=== PATIENT | female | born 1955 | race Caucasian/White ===

== ENCOUNTER 2021-09-05 08:58 | Outpatient (CLI) | payer OTHER, SELFPAY ==
--- NOTE | ~2021-09-05 | MM_ITS ---
EXAMINATION: MM screening pelon BI w lizet HISTORY: Screening TECHNIQUE: Craniocaudal and mediolateral oblique 3-D tomosynthesis images were obtained and synthetic 2-D images were generated. CAD analysis was submitted and interpreted. COMPARISON: 10/04/2007 BREAST PARENCHYMAL COMPOSITION: There are scattered areas of fibroglandular density. FINDINGS: There is no evidence of suspicious mass, calcification, or architectural distortion to sugg est malignancy in either breast. There has been no suspicious interval change. IMPRESSION: 1. No mammographic evidence of malignancy. 2. Recommend routine screening mammography in one year. BI-RADS Category 1: Negative Reviewed, dictated and finalized at location A.
== END 2021-09-05 08:59 | disposition home or self-care (01) ==
PROVIDERS: PCP Internal Medicine; Visit Provider Internal Medicine
DX: Z12.31 Encounter for screening mammogram for malignant neoplasm of breast (principal)
CPT/HCPCS: 77063; 77067

== ENCOUNTER 2022-05-23 12:35 | Outpatient (CLI) | payer MEDICARE, SELFPAY ==
--- NOTE | 2022-05-23 | ECHO_ITS ---
Patient Info Name: Lena Hood Age: 66 years : 1955 Gender: Female Ht: 61 in Wt: 185 lbs BSA: 1.94 m2 HR: 89 bpm BP: 138 / 78 mmHg Heart Rhythm: Sinus Rhythm Technical Quality: Fair Exam Date: 05/23/2022 1:03 PM Exam Location: [facility] Pulmonary Patient Status: Outpatient Admit Date: 05/23/2022 Staff Ordering Physician: SairaKalia MD Audiovisual Equipment Operator: Loyda Schwartz RDCS Attending Provider: Saria, Kalia Sanchez MD Referring Physician: Saira RIVAS; Exam Type: CA echo doppler color flow Study Info Indications R01.1 - Cardiac murmur, unspecified Complete two-dimensional, color flow and Doppler transthoracic echocardiogram is performed. Summary 1. Complete two-dimensional, color flow and Doppler transthoracic echocardiogram is performed. 2. Dynamic left ventricular systolic function, EF greater than 70%. Normal size and thickness. Grade 1 diastolic dysfunction is present. 3. Mildly elevated left ventricular outflow tract velocity of 1.7 m/sec, slightly late peaking, but there is no significant outflow tract gradient or septal thickening to suggest hypertrophic obstructive cardiomyopathy. 4. Trace mitral and tricuspid regurgitation. 5. Normal estimated pulmonary pressure. 6. Normal sinus rhythm. Left Ventricle Left ventricular chamber dimension is normal. Left ventricular systolic function is hyperdynamic, estimated at >70%. There is no increased left ventricular wall thickness. Left ventricular septal wall motion is normal. The left ventricular diastolic function is grade I diastolic dysfunction. Right Ventricle Right ventricular chamber dimension is normal. Right ventricular systolic function is normal. Left Atria Left atrial chamber dimension is normal. Right Atria Right atrial chamber dimension is normal. Aortic Valve The aortic valve is trileaflet. There is no aortic valve sclerosis. There is no aortic valve stenosis. There is no aortic valve regurgitation. Pulmonic Valve The pulmonic valve is normal. There is no pulmonic valve stenosis. There is no pulmonic regurgitation. Mitral Valve The mitral valve has normal leaflets. There is no mitral valve stenosis. There is trace mitral valve regurgitation. Tricuspid Valve The tricuspid valve leaflets are normal. There is no significant tricuspid valve stenosis. There is trace tricuspid valve regurgitation. No pulmonary hypertension, estimated pulmonary arterial systolic pressure is 28 mmHg. Pericardium/Pleural The pericardium appears normal. There is no pericardial effusion. Inferior Vena Cava Normal inferior vena cava with >50% collapse upon inspiration consistent with Empty right atrial pressure, 10 mmHg. Aorta The aortic root size at the sinus of Valsalva is normal. The prox ascending aorta size is normal. Left Ventricular Outflow Tract Name Value Normal LVOT 2D LVOT Diameter 1.9 cm LVOT Doppler LVOT Peak Gradient 10 mmHg LVOT Mean Gradient 7 mmHg LVOT VTI 27 cm LVOT VTI/AV VTI Ratio
== END 2022-05-23 12:36 | disposition home or self-care (01) ==
LOC: ANHCARD 12:36
PROVIDERS: PCP Internal Medicine; Visit Provider Internal Medicine
DX: R01.1 Cardiac murmur, unspecified (principal)
CPT/HCPCS: 93306

== ENCOUNTER 2022-10-31 10:00 | Outpatient (CLI) | payer MEDICARE, SELFPAY ==
--- NOTE | ~2022-10-31 | MM_ITS ---
EXAMINATION: MM screening pelon BI w lizet HISTORY: Screening mammogram TECHNIQUE: Craniocaudal and mediolateral oblique 3-D tomosynthesis images were obtained and synthetic 2-D images were generated. CAD analysis was submitted and interpreted. COMPARISON: 09/05/2021, 10/04/2007 bilateral screening mammogram examinations BREAST PARENCHYMAL COMPOSITION: There are scattered areas of fibroglandular density. FINDINGS: Stable mild fibroglandular asymmetry since 09/05/2021 and 10/04/2007. There is no evidence o f suspicious mass, calcification, or architectural distortion to suggest malignancy in either breast. There has been no suspicious interval change. IMPRESSION: 1. No mammographic evidence of malignancy. 2. Recommend routine screening mammography in one year. BI-RADS Category 1: Negative Reviewed, dictated and finalized at location A. [employer]
== END 2022-10-31 10:01 | disposition home or self-care (01) ==
PROVIDERS: PCP Internal Medicine; Visit Provider Internal Medicine
DX: Z12.31 Encounter for screening mammogram for malignant neoplasm of breast (principal)
CPT/HCPCS: 77063; 77067

== ENCOUNTER 2022-12-16 11:30 | Emergency (ER) | payer MEDICARE, SELFPAY ==
--- NOTE | ~2022-12-16 | XR_ITS ---
XR ankle LT min 3V DATE: 12/16/2022 12:03 INDICATION: Fall. Swelling, bruising TECHNIQUE: 4 views COMPARISON: None FINDINGS: There is a transverse mildly medially displaced fracture of the medial malleolus. There is a linear oblique mildly comminuted fracture of the distal fibular diametaphysis. There is moderate lateral subluxation of the tibiotalar joint. Nonspecific soft tissue projection along the medial aspect of the ankle. There is generalized soft ti ssue swelling of the ankle. IMPRESSION: Bimalleolar fracture and lateral tibiotalar subluxation Reviewed, dictated and finalized at location A. M INSTALLATION TECHNICIAN
--- NOTE | ~2022-12-16 | XR_ITS ---
XR foot LT min 3V DATE: 12/16/2022 12:34 INDICATION: Fall. Left ankle and foot injury TECHNIQUE: 4 views COMPARISON: December 16, 2022 left ankle FINDINGS: Distal fibular diametaphyseal and medial malleolar fractures. Soft tissue swelling of ankle and foot. No foot fracture or dislocation, periosteal reaction or bone destruction is detected. IMPRESSION: Distal fibular diametaphyseal and medial malleolar fractures Reviewed, dictated and finalized at location A. [employer]
[2022-12-16 11:40] VITALS: BP 149/88; PULSE 107; RESP 18; TEMP 36.3; O2SAT 98
--- NOTE | 2022-12-16 13:14 | ED_ITS ---
HPI - Extremity Injury (Lower) General Chief Complaint: Extremity Injury, Lower Stated Complaint: left ankle injury - fall down stairs Time Seen by Provider: 12/16/22 12:04 History of Present Illness HPI Narrative: Patient walking down stairs yesterday and tripped, twisting her left ankle. It was quite swollen and numb, she iced it and took some motrin, felt better, no longer numb. Came in today. Has been scooting around on her butt. Related Data Allergies Allergy/AdvReac Type Severity Reaction Status Date / Time No Known Allergies Allergy Unknown Verified 12/16/22 11:44 Review of Systems Review of Systems: GI: No nausea/vomiting M/S: Left ankle injury SKIN: Swelling/blister over left ankle NEURO: Initial numbness PMFSH Past Medical History Medical History (Updated 12/16/22 @ 13:29 by Terri Miller MD) Hypercholesteremia Hypertension Exam Narrative: EXAMINATION OF ORGAN SYSTEMS/BODY AREAS: Constitutional: Vital signs per nursing GENERAL:Lying in bed with some pain but no acute distress HEAD: Normal with no signs of head trauma. EYES: EOMI, conjunctiva normal ENT: Hearing grossly intact LUNGS: Nonlabored breathing. HEART: [Regular rate and rhythm] ABD: [Soft], nondistended EXT: Able to wiggle toes, large ecchymosis over ankle with blister, good cap refill and palpable DP pulse SKIN: large ecchymosis over ankle with blister NEURO: [Alert and oriented x 3. No gross focal sensory or strength deficits.] PSYCH: Normal affect Course Vital Signs Vital signs: Vital Signs Temperature 97.3 F L 12/16/22 11:40 Pulse Rate 107 H 12/16/22 11:40 Respiratory Rate 18 12/16/22 11:40 Blood Pressure 149/88 H 12/16/22 11:40 Pulse Oximetry 98 12/16/22 11:40 Oxygen Delivery Room Air 12/16/22 11:40 Temperature 97.3 F L 12/16/22 11:40 Pulse Rate 107 H 12/16/22 11:40 Respiratory Rate 18 12/16/22 11:40 Blood Pressure 149/88 H 12/16/22 11:40 Pulse Oximetry 98 12/16/22 11:40 Oxygen Delivery Room Air 12/16/22 11:40 MDM - Extremity Injury (Lower) MDM Narrative Medical decision making narrative: 67yoF p/w L ankle injury, it is very swollen/tender/bruised here with large blister medial malleolus but NVI, pain well controlled here with just home motrin. XR reviewed by myself showing rani fracture. D/w Dr. Avalos who reviewed images and felt patient would benefit from transfer to trauma center given concern for need for wound care and other services we do not have at this hospital. She is given pain meds and placed in OCL splint. She would like to go to [facility]. Dr. Juarez ER attending at [facility] accepting patient, however given many hours wait there requested that I call [facility] also. [facility] also full at this time so I will be transferring patient to [facility] per patient request. Total crit care time 31 min Discharge Plan Discharge Clinical Impression: Bimalleolar ankle fracture Patient Disposition: Acute Care Hospital Condition: Serious Follow-up/Referrals: Saira,Kalia Sanchez MD [Primary Care Provider] -
[2022-12-16] MEDS: HYDROcodone/acetaminophen (*CRX) 5-325 MG TABLET 1 TAB PO (13:36)
[2022-12-16 13:44] VITALS: BP 152/84; PULSE 92; RESP 16; O2SAT 98
--- NOTE | 2022-12-16 13:45 | PC.NURSE ---
pt organized own transport for transfer, no IV placed D/t this
--- NOTE | 2022-12-16 14:08 | PC.NURSE ---
[facility] called at 1311 for BLS truck and per Charge nurse Vicki it was cancelled at 1407 patient will be going POV.
== END 2022-12-16 13:44 | disposition short-term general hospital (02) ==
PROVIDERS: Emergency Provider Emergency Medicine; PCP Internal Medicine
DX: S82.842A Displaced bimalleolar fracture of left lower leg, initial encounter for closed fracture (principal); E78.00 Pure hypercholesterolemia, unspecified; I10 Essential (primary) hypertension; W10.9XXA Fall (on) (from) unspecified stairs and steps, initial encounter
CPT/HCPCS: 29515; 73610; 73630; 99284; A9270

== ENCOUNTER 2024-12-25 13:41 | Outpatient (CLI) | payer MEDICARE, SELFPAY ==
--- NOTE | 2024-12-25 | ECHO_ITS ---
Patient Info Name: Lena Hood Age: 69 years : 1955 Gender: Female Ht: 61 in Wt: 185 lbs BSA: 1.94 m2 HR: 69 bpm BP: 111 / 67 mmHg Technical Quality: Good Exam Date: 12/25/2024 2:13 PM Exam Location: Echo Lab Patient Status: Outpatient Admit Date: 12/25/2024 Staff Ordering Physician: Saira, Kalia Sanchez MD Physical Medicine Teacher: Pati Beavers RDCS Attending Provider: Saira, Kalia Sanchez MD Referring Physician: Saira RIVAS; Exam Type: CA echo doppler color flow Study Info Indications - Cardiac murmur Complete two-dimensional, color flow and Doppler transthoracic echocardiogram is performed. Summary 1. Complete two-dimensional, color flow and Doppler transthoracic echocardiogram is performed. 2. Left ventricular chamber dimension is normal. 3. Left ventricular systolic function is normal, estimated at 65-70%. 4. The left ventricular diastolic function is grade I diastolic dysfunction. 5. E/e' 12 is mildly elevated. 6. Left atrial chamber dimension is mildly enlarged. 7. There is mild aortic valve sclerosis. 8. There is trace aortic valve regurgitation. 9. The mitral valve has mildly calcified leaflets. 10. There is trace mitral valve regurgitation. 11. No pulmonary hypertension, estimated pulmonary arterial systolic pressure is 28 mmHg. Left Ventricle E/e' 12 is mildly elevated. Left ventricular chamber dimension is normal. Left ventricular systolic function is normal, estimated at 65-70%. The left ventricular diastolic function is grade I diastolic dysfunction. Right Ventricle Right ventricular systolic function is normal and with normal TAPSE 1.8 cm. Right ventricular chamber dimension is normal. Left Atria Left atrial chamber dimension is mildly enlarged. Right Atria Right atrial chamber dimension is normal. Aortic Valve The aortic valve is trileaflet. There is mild aortic valve sclerosis. There is no aortic valve stenosis. There is trace aortic valve regurgitation. Pulmonic Valve There is no pulmonic regurgitation. Mitral Valve The mitral valve has mildly calcified leaflets. There is no mitral valve stenosis. There is trace mitral valve regurgitation. Tricuspid Valve There is no tricuspid valve regurgitation. No pulmonary hypertension, estimated pulmonary arterial systolic pressure is 28 mmHg. Pericardium/Pleural There is no pericardial effusion. Inferior Vena Cava Normal inferior vena cava with >50% collapse upon inspiration consistent with normal right atrial pressure, 5 mmHg. Aorta The aortic root size at the sinus of Valsalva is normal. Left Ventricular Outflow Tract Name Value Normal LVOT 2D LVOT Diameter 2.1 cm LVOT Doppler LVOT Peak Gradient 9 mmHg LVOT Mean Gradient 6 mmHg LVOT VTI 29 cm LVOT VTI/AV VTI Ratio 0.6 LVOT Stroke Volume 99 ml LVOT CO 7.4 l/min LVOT CI 3.8 l/min/m2 Mitral Valve Name Value Normal MV Doppler MV Peak Gradient 6 mmHg MV Mean Gradient 2 mmHg MV Decel Walsh 270 cm/s2 MV PHT 96 ms MV Area (PHT) 2.3 cm2 4.0-5.0 MV Area (Cont Eq VTI) 2.8 cm2 MV Regurgitation Doppler MR Peak Gradient 110 mmHg MV Diastolic Function MV E Peak Velocity 90 cm/s MV A Peak Velocity 117 cm/s MV E/A 0.8 MV Decel Time 332 ms MV Annular TDI MV E/e' (Septal) 14.4 <=8.0 MV E/e' (Lateral) 11.1 <=8.0 MV E/e' (Average) 12.8 Tricuspid Valve Name Value Normal TV Regurgitation Doppler TR Peak Velocity 239 cm/s TR Peak Gradient 23 mmHg Estimated PAP/RSVP RA Pressure 5 mmHg <=5 PA Systolic Pressure 28 mmHg <36 RV Systolic Pressure 28 mmHg <36 Aortic Valve Name Value Normal AV Doppler AV Peak Velocity 247 cm/s AV Peak Gradient 0 mmHg AV Mean Gradient 0 mmHg AV VTI 48 cm AV Area (Cont Eq VTI) 2.0 cm2 >=3.0 AV Area (Cont Eq Emmett) 2.1 cm2 AV Regurgitation 2D LVOT Area 3.5 cm2 AV Regurgitation Doppler AR Decel Time 2,465 ms AR Decel Walsh 131 cm/s2 AR PHT 715 ms Ventricles Name Value Normal LV Dimensions 2D/MM IVS Diastolic Thickness (2D) 0.9 cm 0.6-1.0 LVID Diastole (2D) 4.1 cm 3.8-5.2 LVIW Diastolic Thickness (2D) 0.9 cm 0.6-0.9 LVID Systole (2D) 3.1 cm 2.2-3.5 LVOT Diameter 2.1 cm LV Mass (2D Cubed) 114.08 g 67.00-162.00 LV Mass Index (2D Cubed) 59 g/m2 43-95 Relative Wall Thickness (2D) 0.43 LV Fractional Shortening/Ejection Fraction 2D/MM LV Fractional Shortening (2D) 24 % 27-45 LV EF (2D Teicholz) 49 % 54-74 LV Diastolic Volume (4C MOD) 73 ml LV EF (4C MOD) 80 % LV Diastolic Volume (2C MOD) 76 ml LV EF (2C MOD) 71 % LV Diastolic Volume (BP MOD) 81 ml 46-106 LV Diastolic Volume Index (BP MOD) 42 ml/m2 29-61 LV Systolic Volume (BP MOD) 18 ml 14-42 LV Systolic Volume Index (BP MOD) 9 ml/m2 8-24 LV EF (BP MOD) 78 % 54-74 LV Diastolic Length (4C) 7.9 cm LV Systolic Length (4C) 5.9 cm LV Stroke Volume (4C MOD) 58 ml LV CO (BP MOD) 4.9 l/min LV CI (BP MOD) 2.5 l/min/m2 Atria Name Value Normal LA Dimensions LA Volume (4C A-L) 31 ml LA Volume (BP A-L) 44 ml Report Signatures
--- OUTSIDE RECORDS SUMMARY | 2024-12-25 13:48 | XMS_ITS | Clinical Summary ---
Author Organization [facility] Address [address] [place] [address] Care Team Providers Care Chief Station Engineer Name Role Phone Kalia Chávez MD Primary Care Provider Source Comments [facility],non-owned Affiliates and Associated Physician Practices is amultiple site organization consisting of ambulatory clinics and hospital sitesin [place], [place], [place] and [place]. This disclosure is being madepursuant to the Care Everywhere program and may not contain all information available regarding this patient. Last updated 18.[facility] Immunizations Name Administration Dates Next Due TDAP (7yrs+) 04/09/2017 Social History Tobacco Use Types Packs/Day Years Used Date Smoking Tobacco: Never Assessed Sex and Gender Information Value Date Recorded Sex Assigned at Not on file Gender Identity Not on file Sexual Orientation Not on file Plan of Treatment Health Maintenance Due Date Last Done Comments BONE DENSITY TESTING 1955 COLOGUARD (AGES 45-75) - COL ON CA SCREENING 1955 COLON MONITORING 1955 COLONOSCOPY - COLON CA SCREENING 1955 CT COLONOGRAPHY - COLON CA SCREENING 1955 Colorectal Cancer Screening 1955 FIT - COLON CA SCREENING 1955 FLEX SIG - COLON CA SCREENING 1955 LIPID TESTING 1955 MAMMOGRAM 1955 HEPATITIS C SCREENING 05/20/1975 PNEUMOCOCCAL VACCINE 50+ (1 of 1 - PCV) 2007 ZOSTER VACCINE (1 of 2) 2007 COVID-19 VACCINE ( - 2023-2 5 season) 2024 INFLUENZA VACCINE (#1) 2024 DEPRESSION SCREENING 11/05/2024 DTAP/TDAP/TD VACCINES (2 - T d or Tdap) 04/09/2027 04/09/2017 Respiratory Syncytial Virus (RSV) Vaccine Pt: or over 60 yrs (1 - 1-dose 75+ series) 2032 HEPATITIS B VACCINE Aged Out No longe r eligible based on patient's age to complete this topic HIB VACCINE Aged Out No longer eligi ble based on patient's age to complete this topic HPV VACCINE Aged Out No longer eligi ble based on patient's age to complete this topic MENINGOCOCCAL (Group B) VACCINE Aged Out No longer eligible based on patient's age to complete this topic MENINGOCOCCAL VACCINE Aged Out No fer gabriella eligible based on patient's age to complete this topic Care Teams Chief Station Engineer Relationship Specialty Start Date End Date Kalia Chávez MD [address] [facility] [address] [place] [id number] PCP - General Internal Medicine 04/09/17
--- OUTSIDE RECORDS SUMMARY | 2024-12-25 13:48 | XMS_ITS | Patient Health Summary ---
Author Organization [facility] Address [address] [place] [address] Care Team Providers Care Operator Lights Name Role Phone Kalia Chávez MD Primary Care Provider Note from [facility],non-owned Affiliates and Associated Physician Practices is amultiple site organization consisting of ambulatory clinics and hospital sitesin [place], [place], [place] and [place]. This disclosure is being madepursuant to the Care Everywhere program and may not contain all information available regarding this patient. Last updated 18.[facility] Immunizations * TDAP (7yrs+)(Given 04/09/2017) Social History Tobacco Use Types Packs/Day Years Used Date Smoking Tobacco: Never Assessed Sex and Gender Information Value Date Recorded Sex Assigned at Not on file Gender Identity Not on file Sexual Orientation Not on file Care Teams Operator Lights Relationship Specialty Start Date End Date Kalia Chávez MD [address] [id number] PCP - General Internal Medicine 04/09/17
--- OUTSIDE RECORDS SUMMARY | 2024-12-25 13:48 | XMS_ITS | Clinical Summary ---
Author Organization [facility] Address [address] [place] [address] Care Team Providers Care Forensics Team Director Name Role Phone Kalia Chávez MD Primary Care Provider [phone] Allergies No known active allergies Medications levothyroxine (SYNTHROID) 100 mcg tablet Take 100 mcg by mouth pulley worker before breakfast Active hydroCHLOROthia zide (MICROZIDE) 12.5 mg capsule Take 12.5 mg by mouth daily Active ibuprofen (ADVIL,MOTRIN) 800 mg tablet Take 800 mg by mouth Active sertraline (ZOLOFT) 50 mg tablet Take 50 mg by mouth daily Active olmesartan (BENICAR) 20 mg tablet Take 20 mg by mouth daily Active atorvastatin (LIPITOR) 20 mg tablet Take 20 mg by mouth daily Active DULoxetine DR (CYMBALTA) 60 mg capsule Take 60 mg by mouth daily Active aspirin 81 mg enteric coated tablet Take 1 tablet (81 mg total) by mouth 2 (two) times a day for 14 days For blood clot prevention. Take with food. 28 tablet 3 Active HYDROcodone-fausto taminophen (NORCO) 5-325 mg per tabletIndicatio ns:Pain Take 1 tablet by mouth every 4 (four) hours as needed for pain 40 tablet 3 Active senna (SENOKOT) 8.6 mg tablet Take 1 tablet by mouth daily 30 tablet 11 3 Active Active Problems Problem Noted Date Diagnosed Date Chest pain 02/20/2023 02/20/2023 Fatigue 02/20/2023 02/20/2023 Hyperlipidemia 02/20/2023 02/20/2023 Obesity 02/20/2023 02/20/2023 Vitamin D deficiency 02/20/2023 02/20/2023 Closed trimalleolar fracture of left ankle 12/18 Overview (12/18/2022): Added automatically from request for surgery [id number] Diagnosis unknown 12/17/2022 Depression 02/21/2021 02/20/2023 Hypertension 07/25/2017 02/20/2023 Hypothyroidism 07/25/2017 02/20/2023 Palpitations 04/30/2013 02/20/2023 Immunizations Immunization Administration Dates Next Due Influenza, Quad, Adjuvantate d, Intramuscular 09/14/2022 Influenza, Quadrivalent, Spl it, Intramuscular 09/15/2022,08/14/2020,08/21/2019 Influenza, Quadrivalent, Spl it, Preservative Free, Intramuscular 08/21/2019,09/02/2018 Influenza, Trivalent, High D ose, Split, Preservative Free, Intramuscular 07/27/2016,09/16/2015,08/04/2013 Influenza, Trivalent, IM (MDV) 08/28/2021,2013 Influenza, Trivalent, Preser vative Free, Intramuscular 08/01/2017,09/16/2015 Influenza, Unspecified 09/02/2018 Tdap 04/09/2017 Family History Medical History Relation Name Comments No Known Problems Brother No Known Problems Daughter No Known Problems Father No Known Problems Father's Sister No Known Problems Maternal Grandfather No Known Problems Maternal Grandmother No Known Problems Maternal Half-Sister No Known Problems Maternal cousin No Known Problems Mother No Known Problems Mother's Sister No Known Problems Paternal Grandfather No Known Problems Paternal Grandmother No Known Problems Paternal Half-Sister No Known Problems Paternal cousin No Known Problems Sister BRCA 1 Neg Hx BRCA 2 Neg Hx Benign Breast Condition Neg Hx Breast cancer Neg Hx Ductal Carcinoma In-Situ Neg Hx Endometrial cancer Neg Hx Ovarian cancer Neg Hx Thyroid cancer Neg Hx Usual Breast Hyperplasia Neg Hx Relation Name Status Comments Brother Daughter Father Father's Sister Maternal Grandfather Maternal Grandmother Maternal Half-Sister Maternal cousin Mother Mother's Sister Paternal Grandfather Paternal Grandmother Paternal Half-Sister Paternal cousin Sister Social History Tobacco Use Types Packs/Day Years Used Date Smoking Tobacco: Never Passive Smoke Exposure: Never Smokeless Tobacco: Never Tobacco Cessation:Counseling Given: Not Answered Comments No Sex and Gender Information Value Date Recorded Sex Assigned at Not on file Legal Sex Female 11: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 SECRETARY 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 HANDICAPPER Gender Identity Not on file Sexual Orientation Not on file Obstetrics History Para Term AB IAB SAB Ectopic Multiple Livin g Live Births 1 1 1 Date Outcome GA Total Labor Labor/2nd/3rd Weight Sex Type Anes PTL Renetta A1 A5 Name Clin Term Last Filed Vital Signs Vital Sign Reading Time Taken Comments Blood Pressure 141/81 12/20/2022 4:50 PM RACING SECRETARY AND HANDICAPPER Pulse 80 12/20/2022 5:00 PM RACING SECRETARY AND HANDICAPPER Temperature 37 C (98.6 F) 12/20/2022 2:30 PM RACING SECRETARY AND HANDICAPPER Respiratory Rate 16 12/20/2022 5:00 PM RACING SECRETARY AND HANDICAPPER Oxygen Saturation 97% 12/20/2022 5:00 PM RACING SECRETARY AND HANDICAPPER Inhaled Oxygen Concentration - - Weight 81.6 kg (180 lb) 12/16/2022 3:21 PM RACING SECRETARY AND HANDICAPPER Height 154.9 cm (5' 1 ) 12/16/2022 3:21 PM RACING SECRETARY AND HANDICAPPER Body Mass Index 34.01 12/16/2022 3:21 PM RACING SECRETARY AND HANDICAPPER Plan of Treatment Health Maintenance Due Date Last Done Comments Colon Cancer Screening-Colonoscopy 1957 Depression Screening 1957 Hepatitis C Screening 1957 Osteoporosis Screening-Bone Density Scan 1957 Hepatitis B Screening 1975 Pneumococcal vaccine 65+ (1 of 1 - PCV) 2007 Zoster Vaccine (1 of 2) 2007 Breast Cancer Screening-Mammogram 01/15/2020 019, 01/10/2018 Well Visit 65+ 2022 Fall Risk Assessment 12/20/2023 12/20/2022 Covid-19 Vaccine (5 - 2023-2 5 season) 2024 09/25/2022, 10/18/2021, 02/13/2021, Additional history exists Influenza Vaccine (#1) 2024 2, 09/14/2022, 08/28/2021, Additional history exists DTaP/Tdap/Td Vaccine (2 - Td or Tdap) 04/09/2027 04/09/2017 Medical Devices Implanted Type Area Monkey Trainer Device Identifier Shelf Expiration Date Model / Serial / Lot [employer]/O rtho Evos 2mm 14mm Provisional Pin Fixation Sterile [id number] - [id number] Implanted:Qty: 1 on 12/20/2022 by Мария West MD at [facility] Pin Left: Ankle [employer]/Or tho [id number] / / [employer] Evos [id number] 16.3x1.7mm 11 Hole Low Profile Variable Angle [id number] - [id number] Implanted:Qty: 1 on 12/20/2022 by Мария West MD at [facility] Plate Left: Ankle [employer]/Or tho [id number] / / [employer]/O rtho 2.4mm 3.8mm 15mm Self Retaining Screwdriver Self Tap Flat Head [id number] - [id number] Implanted:Qty: 2 on 12/20/2022 by Мария West MD at [facility] Screw Left: Ankle [employer]/Or tho [id number] / / [employer] Evos Mini 2.7mm 4.5mm 10mm Self Tap Cortex T8 Screw Bone [id number] - [id number] Implanted:Qty: 1 on 12/20/2022 by Мария West MD at [facility] Screw Left: Ankle [employer]/Or tho [id number] / / [employer]/O rtho 2.7mm 4.3mm 16mm Self Tap Lock T8 2mm Screw Bone Evos [id number] - [id number] Implanted:Qty: 1 on 12/20/2022 by Мария West MD at [facility] Screw Left: Ankle [employer]/Or tho [id number] / / [employer]/O rtho 2.7mm 4.3mm 14mm Self Tap Lock Small Bone Long Bone T8 2mm Screw [id number] - [id number] Implanted:Qty: 2 on 12/20/2022 by Мария West MD at [facility] Screw Left: Ankle [employer]/Or tho [id number] / / [employer]/O r[employer]o Evos Mini 2.7mm 4.5mm 13mm Self Tap Cortex T8 Screw Bone [id number] - [id number] Implanted:Qty: 1 on 12/20/2022 by Мария West MD at [facility] Screw Left: Ankle [employer]/Or tho [id number] / / [employer]/O rtho Evos 3.5mm 70mm Self Tap Cortex Screw Bone Sterile [id number] - [id number] Implanted:Qty: 1 on 12/20/2022 by Мария West MD at [facility] Screw Left: Ankle [employer]/Or tho [id number] / / [employer]/O r[employer]o Evos 3.5mm 80mm Self Tap Cortex Screw Bone Sterile [id number] - [id number] Implanted:Qty: 1 on 12/20/2022 by Мария West MD at [facility] Screw Left: Ankle [employer]/Or tho [id number] / / [employer]/O rtho Evos 3.5mm 48mm Self Tap Cortex Screw Bone Sterile [id number] - [id number] Implanted:Qty: 2 on 12/20/2022 by Мария West MD at [facility] Screw Left: Ankle [employer]/Or tho [id number] / / [employer]/O rtho Evos 3.5mm 12mm Self Tap Cortex Screw Bone Sterile [id number] - [id number] Implanted:Qty: 3 on 12/20/2022 by Мария West MD at [facility] Screw Left: Ankle [employer]Rich[employer]/Or tho [id number] / / Explanted Type Area Monkey Trainer Device Identifier Shelf Expiration Date Model / Serial / Lot [employer]/Rich[employer]/ Ortho Evos Mini 2.4mm 3.8mm 13mm Self Tap Cortex T7 Screw Bone Sterile [id number] - [id number] Explanted:Qty: 1 on 12/20/2022 by Мария West MD at [facility] Screw Left: Ankle [employer]Rich[employer]/Or tho [id number] / / Procedures Procedure Name Priority Date/Time Associated Diagnosis Comments SCREENING MAMMOGRAM BILATERAL W SAYRA Schedule Routine, Read Routine (OP Routine) 01/14/2019 10:51 AM CDT Encounter for screening mammogram for malignant neoplasm of breast from Last 3 Months or Most Recently Relevant to Health Maintenance Results * Screening Mammogram Bilateral W Sayra (01/14/2019 10:51 AM CDT) Anatomical Region Laterality Modality Breast Bilateral Mammography Narrative 01/15/2019 4:15 PM CDT Screening Mammogram Bilateral W Sayra: 01/14/19 Clinical: Encounter for screening mammogram for malignant neoplasm of breast. Prior Study Comparisons: Comparison was made to the prior available relevant studies at the time of interpretatiion. Findings: Bilateral No significant masses, malignant type calcifications, skin thickening, nipple retraction, or significant lymphadenopathy is noted in either breast. The CAD review showed no significant findings. The breasts have scattered areas of fibroglandular density. The patient will be notified of results by letter. Impression: BI-RADS ATLAS category (overall): 1 Negative There is no mammographic evidence of malignancy. Routine Screening Mammogram in 1 Yr is recommended for bilateral Overall Assessment: 1 - Negative us Kalia Chávez MD IMG MAMMO PROCEDURES Final Result from Last 3 Months or Most Recently Relevant to [id number] MEDICARE [facility] MEDICARE [facility] MEDICARE [facility] Care Teams Forensics Team Director Relationship Specialty Start Date End Date Kalia Chávez MD PCP - General 01/09/17
--- OUTSIDE RECORDS SUMMARY | 2024-12-25 13:48 | XMS_ITS | Referral Summary ---
Author Organization [facility] Address [address] [place] [address] Care Team Providers Care Model Set Artist Name Role Phone Kalia Chávez MD Primary Care Provider Allergies No known active allergies Medications levothyroxine (SYNTHROID) 100 mcg tablet Take 100 mcg by mouth integrity specialist before breakfast Active hydroCHLOROthia zide (MICROZIDE) 12.5 [...] (12/18/2022): Added automatically from request for surgery [id number] Diagnosis unknown 12/17/2022 Depression 02/21/2021 02/20/2023 Hypertension [...] Intramuscular 08/01/2017,09/16/2015 Influenza, Unspecified 09/02/2018 Tdap 04/09/2017 Social History Tobacco Use Types Packs/Day Years Used Date Smoking Tobacco: Never Passive Smoke Exposure: Never Smokeless Tobacco: Never Tobacco Cessation:Counseling Given: Not Answered Comments No Sex and Gender Information Value Date Recorded Sex Assigned at Not on file Legal Sex Female 11:29 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 Gender Identity Not on file Sexual Orientation Not on file Last Filed Vital Signs Vital Sign Reading Time Taken Comments Blood Pressure 141/81 12/20/2022 4:50 PM TUBULAR PRODUCTS FABRICATOR Pulse 80 12/20/2022 5:00 PM TUBULAR PRODUCTS FABRICATOR Temperature 37 C (98.6 F) 12/20/2022 2:30 PM TUBULAR PRODUCTS FABRICATOR Respiratory Rate 16 12/20/2022 5:00 PM TUBULAR PRODUCTS FABRICATOR Oxygen Saturation 97% 12/20/2022 5:00 PM TUBULAR PRODUCTS FABRICATOR Inhaled Oxygen Concentration - - Weight 81.6 kg (180 lb) 12/16/2022 3:21 PM TUBULAR PRODUCTS FABRICATOR Height 154.9 cm (5' 1 ) 12/16/2022 3:21 PM TUBULAR PRODUCTS FABRICATOR Body Mass Index 34.01 12/16/2022 3:21 PM TUBULAR PRODUCTS FABRICATOR Plan of Treatment Not on file Medical Devices Implanted Type Area Drilling Field Operator Device Identifier Shelf Expiration Date Model / Serial / Lot [employer]/O rtho Evos 2mm 14mm Provisional Pin Fixation Sterile [id number] - [id number] Implanted:Qty: 1 on 12/20/2022 by Мария West MD at [facility] Pin Left: Ankle [employer]/Or tho [id number] / / [employer] r[employer]o Evos [id number] 16.3x1.7mm 11 Hole Low Profile Variable Angle [id number] - [id number] Implanted:Qty: 1 on 12/20/2022 by Мария West MD at [facility] Plate Left: Ankle [employer]/Or tho [id number] / / [employer]/O rtho 2.4mm 3.8mm 15mm Self Retaining Screwdriver Self Tap Flat Head [id number] - [id number] Implanted:Qty: 2 on 12/20/2022 by Мария West MD at [facility] Screw Left: Ankle [employer]/Or tho [id number] / / [employer] rtho Evos Mini 2.7mm 4.5mm 10mm Self Tap Cortex T8 Screw Bone [id number] - [id number] Implanted:Qty: 1 on 12/20/2022 by Мария West MD at [facility] Screw Left: Ankle [employer]/Or tho [id number] / / [employer]/O rtho 2.7mm 4.3mm 16mm Self Tap Lock T8 2mm Screw Bone Evos [id number] - [id number] Implanted:Qty: 1 on 12/20/2022 by Мария West MD at [facility] Screw Left: Ankle [employer]/Or tho [id number] / / [employer]/O rtho 2.7mm 4.3mm 14mm Self Tap Lock Small Bone Long Bone T8 2mm Screw [id number] - [id number] Implanted:Qty: 2 on 12/20/2022 by Мария West MD at [facility] Screw Left: Ankle [employer]/Or tho [id number] / / [employer] rtho Evos Mini 2.7mm 4.5mm 13mm Self Tap Cortex T8 Screw Bone [id number] - [id number] Implanted:Qty: 1 on 12/20/2022 by Мария West MD at [facility] Screw Left: Ankle [employer]/Or tho [id number] / / [employer]/O rtho Evos 3.5mm 70mm Self Tap Cortex Screw Bone Sterile [id number] - [id number] Implanted:Qty: 1 on 12/20/2022 by Мария West MD at [facility] Screw Left: Ankle [employer]/Or tho [id number] / / [employer]/O rtho Evos 3.5mm 80mm Self Tap Cortex Screw Bone Sterile [id number] - [id number] Implanted:Qty: 1 on 12/20/2022 by Мария West MD at [facility] Screw Left: Ankle [employer]/Or tho [id number] / / [employer]/O rtho Evos 3.5mm 48mm Self Tap Cortex Screw Bone Sterile [id number] - [id number] Implanted:Qty: 2 on 12/20/2022 by Мария West MD at [facility] Screw Left: Ankle [employer]/Or tho [id number] / / [employer]/O rtho Evos 3.5mm 12mm Self Tap Cortex Screw Bone Sterile [id number] - [id number] Implanted:Qty: 3 on 12/20/2022 by Мария West MD at [facility] Screw Left: Ankle [employer]/Or tho [id number] / / Explanted Type Area Drilling Field Operator Device Identifier Shelf Expiration Date Model / Serial / Lot [employer]/ Ortho Evos Mini 2.4mm 3.8mm 13mm Self Tap Cortex T7 Screw Bone Sterile [id number] - [id number] Explanted:Qty: 1 on 12/20/2022 by Мария West MD at [facility] Screw Left: Ankle [employer]Or tho [id number] / / Procedures Procedure Name Priority Date/Time [...] Most Recently Relevant to Health Maintenance Insurance MEDICARE [facility] MEDICARE [facility] MEDICARE [facility] Care Teams Model Set Artist Relationship Specialty Start Date End Date Kalia Chávez MD PCP - General 01/09/17
--- OUTSIDE RECORDS SUMMARY | 2024-12-25 13:48 | XMS_ITS | Patient Health Record ---
Author Organization [facility] As [employer] Address [address] [place] [address] Care Team Providers Care Director Decision Support Name Role Phone Kalia Chávez MD Primary Care Provider Unavail able Stephen Maria Unavailable [phone] Migration, Provider Unavailable Unavailable Allergies No Known Allergies Reason For Referral No Information Medications Medication SIG (Take, Route, Frequency, Duration) Notes Start Date End Date Status Sertraline HCl 50 MG 1 tablet Oral Once a day for 90 days Active Levothyroxine Sodium 100 MCG Oral 10/24/2023 Active Atorvastatin Calcium 20 MG Oral 10/24/2023 Active DULoxetine HCl 60 MG 1 capsule Oral Once a day for 90 days Active hydroCHLOROthiazide 12.5 MG Oral 10/24/2023 Active Olmesartan Medoxomil 20 MG Oral 10/24/2023 Active Sertraline HCl 50 MG TAKE 1 TABLET BY [facility] EVERY DAY for 90 Active Immunizations Vaccine Route Administration Date Status Comme nts Tdap Unknown 04/09/2017 Administered Pfizer Biontech Covid-19 Vac cine 2nd dose Unknown 01/20/2021 Administered Pfizer Biontech Covid-19 Vac cine 2nd dose Unknown 02/13/2021 Administered Influenza, unspecified formulation Unknown 09/02/2018 A dministered Influenza, high dose seasonal Unknown 08/04/2013 Admini stered Influenza, high dose seasonal Unknown 09/16/2015 Admini stered Influenza, high dose seasonal Unknown 07/27/2016 Admini stered Influenza virus vaccine, quadrivalent (IIV4), split virus, 0.25 mL dosage Unknown 08/20/2018 Administered Influenza virus vaccine, quadrivalent (IIV4), split virus, 0.25 mL dosage Unknown 08/21/2019 Administered Influenza virus vaccine, quadrivalent (IIV4), split virus, 0.25 mL dosage Unknown 08/14/2020 Administered Social History Tobacco Use: Social History Observation Description Date Details (start date - stop date) Never Smoker NA - NA Sex Assigned At : Social History Observation Description Sex Assigned At Female Tobacco Control (Standard) Question Answer Notes Tobacco use: Nonsmoker Problems Problem Type SNOMED Code ICD Code Onset Dates Problem Status W/U Status Risk Notes Problem Recurrent major depression (08282171) Major depressive disorder, recurrent, in remission, unspecified (F33.40) Active confirmed Problem Generalized anxiety disorder (89747206) Generalized anxiety disorder (F41.1) Active confirmed Vital Signs Heart Rate 86 /min 11/27/2024 Height-cm 152.40 cm 11/27/2024 Blood pressure diastolic 77 mm Hg 11/27/2024 Weight-kg 81.19 kg 11/27/2024 Height 60.00 in 11/27/2024 Blood pressure systolic 128 mm Hg 11/27/2024 Weight 179 lbs 11/27/2024 BMI 34.95 kg/m2 11/27/2024 Encounters Encounter Location Date Provider Diagnosis [facility] [facility] [address] [facility] [address] [place] [address] 11/27/2024 Stephen Maria Major depressive disorder, recurrent, in remission, unspecified F33.40 and Generalized anxiety disorder F41.1 [facility] [employer] [facility] [address] [address] 04/23/2024 Stephen Maria Major depressive disorder, recurrent, in remission, unspecified F33.40 and Generalized anxiety disorder F41.1 [facility] [employer] [facility] [address] [facility] [address] [place] [address] 05/23/2024 Stephen Maria Major depressive disorder, recurrent, in remission, unspecified F33.40 and Generalized anxiety disorder F41.1 [facility] [employer] [facility] [address] [facility] [address] [place] [address] 08/21/2024 Stephen Maria [facility] [employer] [facility] [address] [place] [address] 11/27/2024 Stephen Schultza [facility] [employer] [facility] [address] [place] [address] 03/22/2024 Provider Migration [facility] [employer] [address] [place] [address] 03/23/2024 Provider Migration Assessments Encounter Date Diagnosis (ICD Code) Assessment Notes Treatment Notes Treatment Clinical Notes Section Notes 04/23/2024 Major depressive disorder, recurrent, in remission, unspecified (ICD-10 - F33.40) 1. Generalized Anxiety Disorder: - Continue Sertraline 50 mg, one tablet daily. - Patient reports occasional use of Xanax (approximately four times a year), no changes needed at this time. - Encourage patient to engage in activities that promote accountability and social interaction to help manage anxiety. 2. Major Depressive Disorder: - Continue Duloxetine 60 mg, one capsule daily. Send 90-day refill to [facility] pharmacy. - Patient reports increased depression symptoms in the past couple of weeks, but no significant changes in medication adherence. - Monitor patient's response to current medication regimen and consider adding Wellbutrin (bupropion) if symptoms persist or worsen. Educate patient on the low risk of seizures associated with Wellbutrin use. - Encourage patient to engage in activities that promote mental stimulation and social interaction to help manage depressive symptoms. 3. Sleep: - Patient reports good sleep quality, with no difficulty falling or staying asleep, and getting approximately seven hours of sleep per night. No intervention needed at this time. Follow-up: - Schedule a follow-up appointment in one month to monitor the patient's depressive symptoms and discuss potential medication adjustments if necessary. - Behavioral Suggestions: - Try to maintain consistency with your medication without missing doses. - Engage in activities that keep your mind occupied and consider increasing your volunteering if it helps you feel better. - Find a support system or accountability partner to help you stay active and engaged. - Follow-Up: - Let's schedule a follow-up appointment in one month to reassess your symptoms and treatment plan. This will help us ensure that your depression symptoms do not worsen over the summer. - Education: - We discussed the importance of not missing doses of Duloxetine due to its short half-life and the potential withdrawal symptoms. - I provided information about the low risk of seizures with Wellbutrin, given your current health status and medication regimen. 04/23/2024 Generalized anxiety disorder (ICD-10 - F41.1) 1. Generalized Anxiety Disorder: - Continue Sertraline 50 mg, one tablet daily. - Patient reports occasional use of Xanax (approximately four times a year), no changes needed at this time. - Encourage patient to engage in activities that promote accountability and social interaction to help manage anxiety. 2. Major Depressive Disorder: - Continue Duloxetine 60 mg, one capsule daily. Send 90-day refill to [facility] pharmacy. - Patient reports increased depression symptoms in the past couple of weeks, but no significant changes in medication adherence. - Monitor patient's response to current medication regimen and consider adding Wellbutrin (bupropion) if symptoms persist or worsen. Educate patient on the low risk of seizures associated with Wellbutrin use. - Encourage patient to engage in activities that promote mental stimulation and social interaction to help manage depressive symptoms. 3. Sleep: - Patient reports good sleep quality, with no difficulty falling or staying asleep, and getting approximately seven hours of sleep per night. No intervention needed at this time. Follow-up: - Schedule a follow-up appointment in one month to monitor the patient's depressive symptoms and discuss potential medication adjustments if necessary. - Behavioral Suggestions: - Try to maintain consistency with your medication without missing doses. - Engage in activities that keep your mind occupied and consider increasing your volunteering if it helps you feel better. - Find a support system or accountability partner to help you stay active and engaged. - Follow-Up: - Let's schedule a follow-up appointment in one month to reassess your symptoms and treatment plan. This will help us ensure that your depression symptoms do not worsen over the summer. - Education: - We discussed the importance of not missing doses of Duloxetine due to its short half-life and the potential withdrawal symptoms. - I provided information about the low risk of seizures with Wellbutrin, given your current health status and medication regimen. 05/23/2024 Major depressive disorder, recurrent, in remission, unspecified (ICD-10 - F33.40) 1. Depression and Anxiety: - Patient reports improvement in depressive symptoms and is currently teetering on the edge of feeling well. - Patient has been engaging in cognitive behavioral therapy techniques, self-talk, and physical activity to manage symptoms. - Patient is adherent to medications, taking Duloxetine 60 mg and Sertraline 50 mg daily. Plan: - Continue Duloxetine 60 mg once daily for depression and anxiety. - Continue Sertraline 50 mg once daily for depression and anxiety. - Encourage the patient to maintain adherence to medications and continue practicing cognitive behavioral therapy techniques. - Schedule a follow-up appointment in three months to monitor progress and ensure continued improvement. 2. Sleep: - Patient reports occasional difficulty with sleep but is generally sleeping well. Plan: - Encourage the patient to maintain a consistent sleep schedule and practice good sleep hygiene. - Monitor sleep quality during follow-up appointments and address any concerns as needed. 11/27/2024 Major depressive disorder, recurrent, in remission, unspecified (ICD-10 - F33.40) 11/27/2024 Generalized anxiety disorder (ICD-10 - F41.1) 05/23/2024 Generalized anxiety disorder (ICD-10 - F41.1) 1. Depression and Anxiety: - Patient reports improvement in depressive symptoms and is currently teetering on the edge of feeling well. - Patient has been engaging in cognitive behavioral therapy techniques, self-talk, and physical activity to manage symptoms. - Patient is adherent to medications, taking Duloxetine 60 mg and Sertraline 50 mg daily. Plan: - Continue Duloxetine 60 mg once daily for depression and anxiety. - Continue Sertraline 50 mg once daily for depression and anxiety. - Encourage the patient to maintain adherence to medications and continue practicing cognitive behavioral therapy techniques. - Schedule a follow-up appointment in three months to monitor progress and ensure continued improvement. 2. Sleep: - Patient reports occasional difficulty with sleep but is generally sleeping well. Plan: - Encourage the patient to maintain a consistent sleep schedule and practice good sleep hygiene. - Monitor sleep quality during follow-up appointments and address any concerns as needed. Plan Of Treatment Next Appt Details Provider Name:Chitra Caballero , 05/22/2025 11:00:00 AM, [address] [facility] [address], [place], [address], Insurance Providers Payer Name Payer Address Payer Phone Subscriber Number Group Number Insured Name Patient Relationship to Insured Coverage Start Date Coverage End Date Medicare- [place] Medicare [address] [place] [phone] [id number] MAX VARGAS Self - patient is the insured [employer] [facility] [address] [facility] [place] [address] [id number] ALICIA, MAX Self - patient is the insured Medical (General) History Medical History History ICD Code Problems: Adult health examination Essential hypertension Fatigue Generalized anxiety disorder Hyperlipidemia Hypertensive disorder Hypothyroidism Obesity Primary insomnia Recurrent major depression in remission Screening colonoscopy Screening mammography Severe recurrent major depression withou t psychotic features Vitamin D deficiency , Surgical History Surgery Date(Month/Year) Any surgical history 12/20/2022 Other 12/24/1985
--- OUTSIDE RECORDS SUMMARY | 2024-12-25 13:48 | XMS_ITS ---
Author Organization [facility] As [employer] [facility] Address [address] [facility] [address] [place] [address] Care Team Providers Care Farmhand Name Role Phone Kalia Chávez MD Primary Care Provider Unavail able Stephen Maria Unavailable [phone] Medications Medication SIG (Take, Route, Frequency, Duration) Notes Start Date End Date Status Sertraline HCl 50 MG TAKE [address] [facility] EVERY DAY for 90 Active DULoxetine HCl 60 MG 1 capsule Oral Once a day for 90 days Active Levothyroxine Sodium 100 MCG Oral 10/24/2023 Active Olmesartan Medoxomil 20 MG Oral 10/24/2023 Active Atorvastatin Calcium 20 MG Oral 10/24/2023 Active hydroCHLOROthiazide 12.5 MG Oral 10/24/2023 Active Social History Sex Assigned At : Social History Observation Description Sex Assigned At Female Encounters Encounter Location Date Provider Diagnosis [facility] [address] [facility] [address] [facility] [address] [place] [address] 08/21/2024 Stephen Maria Plan Of Treatment Next Appt Details Provider Name:Chitra Caballero , 05/22/2025 11:00:00 AM, [address], [place], [address], Progress Notes * MAX VARGASDOB:[birth year] (69 yo F)Acc No.[id number]:08/21/2024 Patient: Yoly VILLATOROMAX Provider: BECK BILLS :1955 A ge:69 Y S ex:Female Date:08/21/2024 Address:[facility] [address] [facility] Pcp:Kalia Chávez MD Subjective: * Chief Complaints: * * Medical History: * Medications: T aking hydroCHLOROthiazide 12.5 MG Capsule Oral , Taking Levothyroxine Sodium 100 MCG Tablet Oral , Taking Atorvastatin Calcium 20 MG Tablet Oral , Taking Olmesartan Medoxomil 20 MG Tablet Oral , Taking DULoxetine HCl 60 MG Capsule Delayed Release Particles 1 capsule Oral Once a day , Taking Sertraline HCl 50 MG Tablet TAKE 1 TABLET BY MOUTH EVERY DAY Objective: * Vitals: Assessment: Plan: * Treatment: * Procedure Codes: N S NO SHOW * Billing Information: * Visit Code: * Procedure Codes: NS NO SHOW. 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
--- OUTSIDE RECORDS SUMMARY | 2024-12-25 13:48 | XMS_ITS ---
Author Organization [facility] [employer] [facility] Address [address] [place] [address] Care Team Providers Care Child And Family Services Specialist Name Role Phone Kalia Chávez MD Primary Care Provider Unavail able Stephen Maria Unavailable [phone] Social History Sex Assigned At : Social History Observation Description Sex Assigned At Female Encounters Encounter Location Date Provider Diagnosis [facility] [employer] [facility] [address] [place] [address] 11/27/2024 Stephen Maria Plan Of Treatment Next Appt Details Provider Name:Chitra Caballero , 05/22/2025 11:00:00 AM, [address], [address], [place], [address], Progress Notes * MAX VARGASDOB:[birth year] (69 yo F)Acc No.[id number]:11/27/2024 Patient: MAX SOARES :1955 A ge:69 Y S ex:Female Address:[address] [facility] [address] * * Date:
--- OUTSIDE RECORDS SUMMARY | 2024-12-25 13:48 | XMS_ITS | Referral Summary ---
Author Organization [facility] Address [address] [place] [address] Care Team Providers Care Farebox Repairer Name Role Phone Kalia Chávez MD Primary Care Provider [phone] Source Comments [facility],non-owned Affiliates and Associated Physician Practices is amultiple site organization consisting of ambulatory clinics and hospital sitesin [place], [place], [place] and [place]. This disclosure is being madepursuant to the Care Everywhere program and may not contain all information available regarding this patient. Last updated 18.[facility] [employer] Immunizations Name Administration Dates Next Due TDAP (7yrs+) 04/09/2017 Social History Tobacco Use Types Packs/Day Years Used Date Smoking Tobacco: Never Assessed Sex and Gender Information Value Date Recorded Sex Assigned at Not on file Gender Identity Not on file Sexual Orientation Not on file Plan of Treatment Not on file Care Teams Farebox Repairer Relationship Specialty Start Date End Date Kalia Chávez MD [address] [facility] [address] [place] [address] PCP - General Internal Medicine 04/09/17
--- OUTSIDE RECORDS SUMMARY | 2024-12-25 13:49 | XMS_ITS ---
Author Organization [facility] Address [address] [place] [address] Care Team Providers Care Custom Van Converter Name Role Phone Kalia Chávez MD Primary Care Provider Unavail able Stephen Maria Unavailable [phone] Allergies No Known Allergies REASON FOR VISIT Depression, follow up medication eval Medications Medication SIG (Take, Route, Frequency, Duration) Notes Start Date End Date Status Sertraline HCl 50 MG 1 tablet Oral Once a day for 90 days Active Levothyroxine Sodium 100 MCG Oral 10/24/2023 Active Atorvastatin Calcium 20 MG Oral 10/24/2023 Active Olmesartan Medoxomil 20 MG Oral 10/24/2023 Active Sertraline HCl 50 MG TAKE 1 TABLET BY [facility] EVERY DAY for 90 Active DULoxetine HCl 60 MG 1 capsule Oral Once a day for 90 days Active hydroCHLOROthiazide 12.5 MG Oral 10/24/2023 Active Social History Tobacco Use: Social History Observation Description Date Details (start date - stop date) Never Smoker NA - NA Sex Assigned At : Social History Observation Description Sex Assigned At Female Tobacco Control (Standard) Question Answer Notes Tobacco use: Nonsmoker Vital Signs Blood pressure systolic 128 mm Hg 11/27/19 25 Blood pressure diastolic 77 mm Hg 025 Heart Rate 86 /min 11/27/2024 Height 60.00 in 11/27/2024 Weight 179 lbs 11/27/2024 BMI 34.95 kg/m2 11/27/2024 Height-cm 152.40 cm 11/27/2024 Weight-kg 81.19 kg 11/27/2024 Encounters Encounter Location Date Provider Diagnosis [facility] [address] [place] [address] 11/27/2024 Stephen Maria Major depressive disorder, recurrent, in remission, unspecified F33.40 and Generalized anxiety disorder F41.1 Assessments Encounter Date Diagnosis (ICD Code) Assessment Notes Treatment Notes Treatment Clinical Notes Section Notes 11/27/2024 Major depressive disorder, recurrent, in remission, unspecified (ICD-10 - F33.40) 11/27/2024 Generalized anxiety disorder (ICD-10 - F41.1) Plan Of Treatment Medication Medication Name Sig Start Date Stop Date Notes Sertraline HCl 50 MG 1 tablet Oral Once a day for 90 days DULoxetine HCl 60 MG 1 capsule Oral Once a day for 90 days Next Appt Details Follow Up: 6 Months, Reason: f/u depression, anxiety Provider Name:Chitra Caballero , 05/22/2025 11:00:00 AM, [address], [facility] [address], [place], [address], Progress Notes * MAX VARGASDOB:[birth year] (69 yo F)Acc No.[id number]:11/27/2024 Patient: Yoly SANTAMAX HOBBS Provider: BECK BILLS :1955 A ge:69 Y S ex:Female Date:11/27/2024 Address:[facility] [address] [facility] Pcp:Kalia Chávez MD Subjective: * Chief Complaints: * 1 . Depression. 2. Follow up medication eval. * HPI: D epression Screening: HUMBERTO-7 (2018 Edition) F eeling nervous, anxious, or on edge N ot at all N ot being able to stop or control worrying?Several days W orrying too much about different things S everal days T rouble relaxing N ot at all B eing so restless that it is hard to sit still N ot at all B ecoming easily annoyed or irritable N ot at all F eeling afraid as if something awful might happen S everal days T otal HUMBERTO-7 Score 3 I f you checked any problems, how difficult have they made it for you to do your work, take care of things at home, or get along with other people? N ot difficult at all I nterpretation of Total ( 0 to 4) No Anxiety C [place]-Suicide Severity Rating Scale: Suicide Risk (CSRS-screener) i n the past one month Have you wished you were or wished you could go to sleep and not wake up? N o i n the past one month Have you actually had any thoughts of killing yourself? N o H ave you ever done anything, started to do anything, or prepared to do anything to end your life? N o D epression screening: PHQ-9 L ittle interest or pleasure in doing things?Not at all F eeling down, depressed, or hopeless N ot at all T rouble falling or staying asleep, or sleeping too much N ot at all F eeling tired or having little energy S everal days P oor appetite or overeating N ot at all F eeling bad about yourself or that you are a failure, or have let yourself or your family down N ot at all T rouble concentrating on things, such as reading the newspaper or watching television N ot at all M oving or speaking so slowly that other people could have noticed; or the opposite, being so fidgety or restless that you have been moving around a lot more than usual N ot at all T houghts that you would be better off or of hurting yourself in some way N ot at all T otal Score 1 I nterpretation M inimal Depression Intervention D epression Screening Findings N egative S uicide Risk Assessment Performed _ H istory of Presenting Problem: Anxiety O nset: years ago. Depression O nset: years ago. * Medical History: P kathilems: Adult health examination, Essential hypertension, Fatigue, Generalized anxiety disorder, Hyperlipidemia, Hypertensive disorder, Hypothyroidism, Obesity, Primary insomnia, Recurrent major depression in remission, Screening colonoscopy, Screening mammography, Severe recurrent major depression without psychotic features, Vitamin D deficiency, ,. * Social History: T obacco Use: T obacco Control (Standard) T obacco use: N onsmoker M igrated Social History: M igrated Social History: Alcohol Intake: None 08/22/2018,Tobacco Years: Never smoker 08/22/2018. Martina shelby: A dvance Care Planning A re you your own decision-maker Y es D o you have Power of Aircraft Body Repairer for Health or Medical? N o * Medications: T aking hydroCHLOROthiazide 12.5 MG Capsule Oral , Taking Levothyroxine Sodium 100 MCG Tablet Oral , Taking Atorvastatin Calcium 20 MG Tablet Oral , Taking Olmesartan Medoxomil 20 MG Tablet Oral , Taking DULoxetine HCl 60 MG Capsule Delayed Release Particles 1 capsule Oral Once a day , Taking Sertraline HCl 50 MG Tablet TAKE 1 TABLET BY MOUTH EVERY DAY , Medication List reviewed and reconciled with the patient * Allergies: N .K.D.A. Objective: * Vitals: B P:128/77mm Hg, HR:86/min, Wt:179lbs, Wt-k.19 kg, Ht: 60.00 in, Ht-cm: 152.40 cm, BMI:34.95Index, Body Surface Area: 1.85. * Examination: P sychiatry: Appearance: w ell-groomed, well-nourished, .... Affect / mood: a ppropriate, full range. Attention: g ood. Attitude: c ooperative. Suicidal ideation: n one. Memory status: n o impairment noted. Degree of awareness of surroundings: w ithin normal limits.? Delusions: n o. Hallucinations: n o. Insight: g ood. Intellectual functioning: n o impairment noted. Judgement: g ood. Orientation: a wake, alert and oriented x 3. Perceptual disorders: n o perceptual disorder noted. Psychomotor activity: w ithin normal range. Speech / language: a ppropriate pitch/modulation, clear and coherent, normal rate, volume, and articulation (RVR), proper grammar used. Thought content: a ppropriate. Thought process: i ntact. Assessment: * Assessment: 1. M ajor depressive disorder, recurrent, in remission, unspecified - F33.40 (Primary) ? 2 . G eneralized anxiety disorder - F41.1 Plan: * Treatment: * Procedure Codes: 9 6127 BEHAV ASSMT W/SCORE & DOCD/STAND INSTRUMENT * Preventive Medicine: Counseling: B P Management: PRE-HYPERTENSIVE FOLLOW-UP PLAN: F ollow-up 2 weeks ____ LIFESTYLE RECOMMENDATION: Tima huff education Recommended Nonpharmacologic Interventions (Lifestyle Modifications) -Weight ReductionA heart-healthy diet , such as Dietary Approaches to Stop Hypertension (DASH) Eating PlanDietary Sodium RestrictionIncreased Physical ActivityModeration in alcohol consumption REFERRAL TO ALTERNATIVE / PRIMARY CARE PROVIDER: R eferral to general physician * Follow Up: 6 Months (Reason: f/u depression, anxiety) * Billing Information: * Visit Code: 55993 OFFICE OUTPATIENT VISIT 25 MINUTES DETAILED HISTORY AND EXAM/MODERATE MEDICAL DECISION MAKING. * Procedure Codes: 15603 BEHAV ASSMT W/SCORE & DOCD/STAND INSTRUMENT. * Electronic signature of BECK Macdonald on 12/25/2024 at 01:48 PM NURSE INTERN Sign off status: Pending * Provider: BECK BILLS Date: 0 11/27/2024 Generated for Héctor ricardo/Milka/Angeles on: 0 12/25/2024 01:48 PM NURSE INTERN History and Physical Notes * HPI (History of Present Illness) Category Sub-Category Detail Notes Category Not es History of Presenting Problem Anxiety Onset: year s ago Depression Onset: years ago Depression screening PHQ-9 Little inte rest or pleasure in doing things: Not at all Feeling down, depressed, or hopeless: No t at all Trouble falling or staying asleep, or sl eeping too much: Not at all Feeling tired or having little energy: S everal days Poor appetite or overeating: Not at all Feeling bad about yourself o r that you are a failure, or have let yourself or your family down: Not at all Trouble concentrating on thi ngs, such as reading the newspaper or watching television: Not at all Moving or speaking so slowly that other people could have noticed; or the opposite, being so fidgety or restless that you have been moving around a lot more than usual: Not at all Thoughts that you would be b edgar off or of hurting yourself in some way: Not at all Total Score: 1 Interpretation: Minimal Depression Intervention Depression Screening Findings: N egative Suicide Risk Assessment Performed: ____ Depression Screening HUMBERTO-7 (2018 Edition) Feelin g nervous, anxious, or on edge: Not at all Not being able to stop or control worryi ng: Several days Worrying too much about different things : Several days Trouble relaxing: Not at all Being so restless that it is hard to sit still: Not at all Becoming easily annoyed or irritable: No t at all Feeling afraid as if something awful bertrand ht happen: Several days Total HUMBERTO-7 Score: 3 If you checked any problems, how difficult have they made it for you to do your work, take care of things at home, or get along with other people?: Not difficult at all Interpretation of Total: (0 to 4) No Anx iety Faulk-Suicide Severity Rating Scale Suicide Risk (CSRS-screener) in the past one month Have you wished you were or wished you could go to sleep and not wake up?: No in the past one month Have y ou actually had any thoughts of killing yourself?: No Have you ever done anything, started to do anything, or prepared to do anything to end your life?: No Examination Category Sub-Category Detail Notes Category Not es Psychiatry Appearance: well-groomed, well-nourished , ... Attitude: cooperative Psychomotor activity: within normal rang e Attention: good Degree of awareness of surroundings: wit hin normal limits Orientation: awake, alert and shannan ented x 3 Affect / mood: appropriate, full ra nge Speech / language: appropriate pitch/mo dulation, clear and coherent, normal rate, volume, and articulation (RVR), proper grammar used Insight: good Judgement: good Thought process: intact Thought content: appropriate Perceptual disorders: no perceptual diso rder noted Suicidal ideation: none Intellectual functioning: no impairment noted Memory status: no impairment noted Delusions: no Hallucinations: no
== END 2024-12-25 13:42 | disposition home or self-care (01) ==
PROVIDERS: PCP Internal Medicine; Visit Provider Internal Medicine
DX: R01.1 Cardiac murmur, unspecified (principal)
CPT/HCPCS: 93306

== ENCOUNTER 2025-04-03 01:24 | Day surgery (SDC) | payer MEDICARE, SELFPAY ==
[2025-03-26 09:53] VITALS: BMI 30.2
--- OUTSIDE RECORDS SUMMARY | 2025-04-03 01:27 | XMS_ITS | Referral Summary ---
Author Organization [facility] Address [address] [place] [address] Care Team Providers Care Shotgun Shell Loading Machine Operator Name Role Phone Kalia Chávez MD Primary Care Provider Allergies No known active allergies Medications levothyroxine (SYNTHROID) 100 mcg tablet Take 100 mcg by mouth roast master before breakfast Active hydroCHLOROthia zide (MICROZIDE) 12.5 [...] (12/18/2022): Added automatically from request for surgery [id number] Diagnosis unknown 12/17/2022 Depression 02/21/2021 02/20/2023 Hypertension [...] on file Legal Sex Female 11:29 AM PENSION FUND MANAGER Gender Identity Not on file Sexual Orientation Not on file Last Filed Vital Signs Vital Sign Reading Time Taken Comments Blood Pressure 141/81 12/20/2022 4:50 PM PENSION FUND MANAGER Pulse 80 12/20/2022 5:00 PM PENSION FUND MANAGER Temperature 37 C (98.6 F) 12/20/2022 2:30 PM PENSION FUND MANAGER Respiratory Rate 16 12/20/2022 5:00 PM PENSION FUND MANAGER Oxygen Saturation 97% 12/20/2022 5:00 PM PENSION FUND MANAGER Inhaled Oxygen Concentration - - Weight 81.6 kg (180 lb) 12/16/2022 3:21 PM PENSION FUND MANAGER Height 154.9 cm (5' 1) 12/16/2022 3:21 PM PENSION FUND MANAGER Body Mass Index 34.01 12/16/2022 3:21 PM PENSION FUND MANAGER Plan of Treatment Not on file Medical Devices Implanted Type Area Visual Basic Developer Device Identifier Shelf Expiration Date Model / Serial / Lot [employer]O rtho Evos 2mm 14mm Provisional Pin Fixation Sterile [id number] - [id number] Implanted:Qty: 1 on 12/20/2022 by Мария West MD at [facility] Pin Left: Ankle [employer]/Or tho [id number] / / [employer] r[employer]o Evos [id number] 16.3x1.7mm 11 Hole Low Profile Variable Angle [id number] - [id number] Implanted:Qty: 1 on 12/20/2022 by Мария West MD at [facility] Plate Left: Ankle [employer]/Or tho [id number] / / [employer]/O rtho 2.4mm 3.8mm 15mm Self Retaining Screwdriver Self Tap Flat Head [id number] - [id number] Implanted:Qty: 2 on 12/20/2022 by Мария West MD at [facility] Screw Left: Ankle [employer]/Or tho [id number] / / [employer] r[employer]o Evos Mini 2.7mm 4.5mm 10mm Self Tap Cortex T8 Screw Bone [id number] - [id number] Implanted:Qty: 1 on 12/20/2022 by Мария West MD at [facility] Screw Left: Ankle [employer]Or tho [id number] / / [employer]/O rtho 2.7mm 4.3mm 16mm Self Tap Lock T8 2mm Screw Bone Evos [id number] - [id number] Implanted:Qty: 1 on 12/20/2022 by Мария West MD at [facility] Screw Left: Ankle [employer]Or tho [id number] / / [employer]/O rtho 2.7mm 4.3mm 14mm Self Tap Lock Small Bone Long Bone T8 2mm Screw [id number] - [id number] Implanted:Qty: 2 on 12/20/2022 by Мария West MD at [facility] Screw Left: Ankle [employer]/Or tho [id number] / / [employer]/O rtho Evos Mini 2.7mm 4.5mm 13mm Self Tap Cortex T8 Screw Bone [id number] - [id number] Implanted:Qty: 1 on 12/20/2022 by Мария West MD at [facility] Screw Left: Ankle [employer]/Or tho [id number] / / [employer]/O rtho Evos 3.5mm 70mm Self Tap Cortex Screw Bone Sterile [id number] - [id number] Implanted:Qty: 1 on 12/20/2022 by Мария West MD at [facility] Screw Left: Ankle [employer]/Or tho [id number] / / [employer]/O rtho Evos 3.5mm 80mm Self Tap Cortex Screw Bone Sterile [id number] - [id number] Implanted:Qty: 1 on 12/20/2022 by Мария West MD at [facility] Screw Left: Ankle [employer]/Or tho [id number] / / [employer]/O rtho Evos 3.5mm 48mm Self Tap Cortex Screw Bone Sterile [id number] - [id number] Implanted:Qty: 2 on 12/20/2022 by Мария West MD at [facility] Screw Left: Ankle [employer]/Or tho [id number] / / [employer]/O rtho Evos 3.5mm 12mm Self Tap Cortex Screw Bone Sterile [id number] - [id number] Implanted:Qty: 3 on 12/20/2022 by Мария West MD at [facility] Screw Left: Ankle [employer]Rich[employer]/Or tho [id number] / / Explanted Type Area Visual Basic Developer Device Identifier Shelf Expiration Date Model / Serial / Lot [employer]/Rich[employer]/ Ortho Evos Mini 2.4mm 3.8mm 13mm Self Tap Cortex T7 Screw Bone Sterile [id number] - [id number] Explanted:Qty: 1 on 12/20/2022 by Мария West MD at [facility] Screw Left: Ankle [employer]/Or tho [id number] / / Procedures Procedure Name Priority Date/Time [...] Recently Relevant to Health Maintenance Insurance [facility]ARE [facility]ICARE [facility]ARE [facility] Care Teams Shotgun Shell Loading Machine Operator Relationship Specialty Start Date End Date Kalia Chávez MD PCP - General 01/09/17
--- OUTSIDE RECORDS SUMMARY | 2025-04-03 01:27 | XMS_ITS | Clinical Summary ---
Author Organization [facility] Address [address] [place] [address] Care Team Providers Care Data Analyst Name Role Phone Kalia Chávez MD Primary Care Provider Allergies No known active allergies Medications levothyroxine (SYNTHROID) 100 mcg tablet Take 100 mcg by mouth cashier assistant before breakfast Active hydroCHLOROthia zide (MICROZIDE) 12.5 [...] (12/18/2022): Added automatically from request for surgery [id number] Diagnosis unknown 12/17/2022 Depression 02/21/2021 02/20/2023 Hypertension [...] on file Legal Sex Female 11:29 AM SPOT WELDER Gender Identity Not on file Sexual Orientation Not on file Obstetrics History Para Term AB IAB SAB Ectopic Multiple Livin g Live Births 1 1 1 Date Outcome GA Total Labor Labor/2nd/3rd Weight Sex Type Anes PTL Renetta A1 A5 Name Clin Term Last Filed Vital Signs Vital Sign Reading Time Taken Comments Blood Pressure 141/81 12/20/2022 4:50 PM SPOT WELDER Pulse 80 12/20/2022 5:00 PM SPOT WELDER Temperature 37 C (98.6 F) 12/20/2022 2:30 PM SPOT WELDER Respiratory Rate 16 12/20/2022 5:00 PM SPOT WELDER Oxygen Saturation 97% 12/20/2022 5:00 PM SPOT WELDER Inhaled Oxygen Concentration - - Weight 81.6 kg (180 lb) 12/16/2022 3:21 PM SPOT WELDER Height 154.9 cm (5' 1) 12/16/2022 3:21 PM SPOT WELDER Body Mass Index 34.01 12/16/2022 3:21 PM SPOT WELDER Plan of Treatment Health Maintenance Due Date [...] 10/18/2021, 02/13/2021, Additional history exists Influenza Vaccine (Season Ended) 2025 09/15/2022, 09/14/2022, 08/28/2021, Additional history exists DTaP/Tdap/Td Vaccine (2 - Td or Tdap) 04/09/2027 04/09/2017 Medical Devices Implanted Type Area Campus Coordinator Device Identifier Shelf Expiration Date Model / Serial / Lot [employer]Rich[employer]/O rtho Evos 2mm 14mm Provisional Pin Fixation Sterile [id number] - [id number] Implanted:Qty: 1 on 12/20/2022 by Мария West MD at [facility] Pin Left: Ankle [employer]Or tho [id number] / / [employer] r[employer]o Evos [id number] 16.3x1.7mm 11 Hole Low Profile Variable Angle [id number] - [id number] Implanted:Qty: 1 on 12/20/2022 by Мария West MD at [facility] Plate Left: Ankle [employer]/Or tho [id number] / / [employer]/O rtho 2.4mm 3.8mm 15mm Self Retaining Screwdriver Self Tap Flat Head [id number] - [id number] Implanted:Qty: 2 on 12/20/2022 by Мария West MD at [facility] Screw Left: Ankle [employer]Or tho [id number] / / [employer] rtho Evos Mini 2.7mm 4.5mm 10mm Self Tap Cortex T8 Screw Bone [id number] - [id number] Implanted:Qty: 1 on 12/20/2022 by Мария West MD at [facility] Screw Left: Ankle [employer]Or tho [id number] / / [employer]/O rtho 2.7mm 4.3mm 16mm Self Tap Lock T8 2mm Screw Bone Evos [id number] - [id number] Implanted:Qty: 1 on 12/20/2022 by Мария West MD at [facility] Screw Left: Ankle [employer]/Or tho [id number] / / [employer]/O rtho 2.7mm 4.3mm 14mm Self Tap Lock Small Bone Long Bone T8 2mm Screw [id number] - [id number] Implanted:Qty: 2 on 12/20/2022 by Мария West MD at [facility] Screw Left: Ankle [employer]/Or tho [id number] / / [employer]/O rtho Evos Mini 2.7mm 4.5mm 13mm Self Tap Cortex T8 Screw Bone [id number] - [id number] Implanted:Qty: 1 on 12/20/2022 by Мария West MD at [facility] Screw Left: Ankle [employer]/Or tho [id number] / / [employer]/O rtho Evos 3.5mm 70mm Self Tap Cortex Screw Bone Sterile [id number] - [id number] Implanted:Qty: 1 on 12/20/2022 by Мария West MD at [facility] Screw Left: Ankle [employer]/Or tho [id number] / / [employer]/O rtho Evos 3.5mm 80mm Self Tap Cortex Screw Bone Sterile [id number] - [id number] Implanted:Qty: 1 on 12/20/2022 by Мария West MD at [facility] Screw Left: Ankle [employer]/Or tho [id number] / / [employer]/O rtho Evos 3.5mm 48mm Self Tap Cortex Screw Bone Sterile [id number] - [id number] Implanted:Qty: 2 on 12/20/2022 by Мария West MD at [facility] Screw Left: Ankle [employer]/Or tho [id number] / / [employer]Rich[employer]/O rtho Evos 3.5mm 12mm Self Tap Cortex Screw Bone Sterile [id number] - [id number] Implanted:Qty: 3 on 12/20/2022 by Мария West MD at [facility] Screw Left: Ankle [employer]/Or tho [id number] / / Explanted Type Area Campus Coordinator Device Identifier Shelf Expiration Date Model / Serial / Lot [employer]/Rich[employer]/ Ortho Evos Mini 2.4mm 3.8mm 13mm Self Tap Cortex T7 Screw Bone Sterile [id number] - [id number] Explanted:Qty: 1 on 12/20/2022 by Мария West MD at [facility] Screw Left: Ankle [employer]/Or tho [id number] / / Procedures Procedure Name Priority Date/Time [...] Recently Relevant [place] [id number] MEDICARE [facility] MEDICARE [facility] MEDICARE [facility] Care Teams Data Analyst Relationship Specialty Start Date End Date Kalia Chávez MD PCP - General 01/09/17
--- OUTSIDE RECORDS SUMMARY | 2025-04-03 01:27 | XMS_ITS | Clinical Summary ---
Author Organization [facility] Address [address] [place] [address] Care Team Providers Care Bunch Breaker Name Role Phone Kalia Chávez MD Primary Care Provider Source Comments [facility],non-owned Affiliates and Associated Physician Practices is amultiple site organization consisting of ambulatory clinics and hospital sitesin [place], [place], [place] and [place]. This disclosure is being madepursuant to the Care Everywhere program and may not contain all information available regarding this patient. Last updated 18.[facility] [employer] Immunizations Immunization Administration Dates Next Due TDAP (7yrs+) 04/09/2017 Social History Tobacco Use Types Packs/Day Years Used Date Smoking Tobacco: Never Assessed Comments Unknown Sex and Gender Information Value Date Recorded Sex Assigned at Not on file Legal Sex Female 10:21 AM CDT Gender Identity Not on file Sexual Orientation [...] VACCINE (1 of 2) 2007 COVID-19 VACCINE (2023-2 5 season) 2024 DEPRESSION SCREENING 11/05/2024 INFLUENZA VACCINE (Season Ended) 2025 DTAP/TDAP/TD VACCINES (2 - T d or [...] to complete this topic MENINGOCOCCAL (Group B) VACC INE SHARED DECISION-MAKING Aged Out No longer eligibl e based on patient's age to complete this topic MENINGOCOCCAL GROUPS A/C/Y/W VACCINE Aged Out No longer eligible b ased on patient's age to complete this topic Insurance [address] Care Teams Bunch Breaker Relationship Specialty Start Date End Date Kalia Chávez MD [address] [place] [address] [address] [place] [id number] PCP - General Internal Medicine 04/09/17
--- OUTSIDE RECORDS SUMMARY | 2025-04-03 01:27 | XMS_ITS | Patient Health Record ---
Author Organization [facility] [employer] Address [address] [place] [address] Care Team Providers Care Magneto Repairer Name Role Phone Kalia Chávez MD Primary Care Provider Unavail able Stephen Maria Unavailable [phone] Allergies No Known Allergies Reason For Referral [...] HCl 50 MG TAKE 1 TABLET BY [facility] EVERY DAY for 90 Active Immunizations Vaccine Route Administration Date Status Comme nts Influenza virus vaccine, quadrivalent (IIV4), split virus, 0.25 mL dosage Unknown 08/20/2018 Administered Influenza virus vaccine, quadrivalent (IIV4), split virus, 0.25 mL dosage Unknown 08/21/2019 Administered Influenza virus vaccine, quadrivalent (IIV4), split virus, 0.25 mL dosage Unknown 08/14/2020 Administered Influenza, high dose seasonal Unknown 08/04/2013 Admini stered Influenza, high dose seasonal Unknown 09/16/2015 Admini stered Influenza, high dose seasonal Unknown 07/27/2016 Admini stered Influenza, unspecified formulation Unknown 09/02/2018 A dministered Pfizer Biontech Covid-19 Vac cine 2nd dose Unknown 01/20/2021 Administered Pfizer Biontech Covid-19 Vac cine 2nd dose Unknown 02/13/2021 Administered Tdap Unknown 04/09/2017 Administered Social History Tobacco Use: Social History Observation Description Date Details (start date - stop date) Never Smoker NA - NA Sex Assigned At : Social History Observation Description Sex Assigned At Female Tobacco Control (Standard) Question Answer Notes Tobacco use: Nonsmoker Problems Problem Type SNOMED Code ICD Code Onset Dates Problem Status W/U Status Risk Notes Problem Recurrent major depression (92775812) Major depressive disorder, recurrent, in remission, unspecified (F33.40) Active confirmed Problem Generalized anxiety disorder (87819964) Generalized anxiety disorder (F41.1) Active confirmed Vital Signs Heart Rate 86 /min 11/27/2024 Height-cm 152.40 cm 11/27/2024 Blood pressure diastolic 77 mm Hg 11/27/2024 Weight-kg 81.19 kg 11/27/2024 Height 60.00 in 11/27/2024 Blood pressure systolic 128 mm Hg 11/27/2024 Weight 179 lbs 11/27/2024 BMI 34.95 kg/m2 11/27/2024 Encounters Encounter Location Date Provider Diagnosis [facility] [email or web address] [place] [id number] [address] 04/23/2024 Stephenkaren Gutiérrezoza Major depressive disorder, recurrent, in remission, unspecified F33.40 and Generalized anxiety disorder F41.1 [facility] [email or web address] [facility] [address] [address] 05/23/2024 Stephen Maria Major depressive disorder, recurrent, in remission, unspecified F33.40 and Generalized anxiety disorder F41.1 [facility] [email or web address] [facility] [address] [address] 08/21/2024 Stephen Maria [facility] [address] [place] [address] 11/27/2024 Stephen Maria Major depressive disorder, recurrent, in remission, unspecified F33.40 and Generalized anxiety disorder F41.1 [facility] [address] [place] [address] 11/27/2024 Stephen Schultza [facility] [email or web address] [facility] [address] [place] [address] 03/11/2025 Stephen Schultza Assessments Encounter Date Diagnosis (ICD Code) Assessment [...] one capsule daily. Send 90-day refill to [facility] pharmacy. - Patient reports increased depression symptoms [...] one capsule daily. Send 90-day refill to [facility] pharmacy. - Patient reports increased depression symptoms [...] and address any concerns as needed. 11/27/2024 Other 1. Anxiety and depressive symptoms: - Patient reports doing relatively well with some fluctuations in mood. - Expresses fear of symptoms returning but overall seems to be managing well. - Continue current medications: Duloxetine and Sertraline Plan: - Refill prescriptions and maintain 6-month follow-up appointments. - Request pharmacy to call the patient when medications are ready for pickup. 2. Adjustment to living situation and concerns about the future: - Patient is living with her elderly mother and has concerns about her housing situation after her mother passes away. Plan: - Encourage the patient to explore potential housing options and discuss her concerns with her siblings. - Recommend seeking support from a social science teacher or therapist if needed. 3. Family dynamics and sibling's health: - Patient reports her sister has stopped caring for herself and avoids medical appointments. Plan: - Encourage the patient to discuss her concerns with her sister and offer support in seeking medical care if her sister is open to it. 4. Patient's overall well-being and coping strategies: - Patient has found understanding her personality type (INTP) helpful in accepting herself and managing her mental health. Plan: - Encourage the patient to continue exploring her personality traits and utilizing coping strategies that work for her. - Recommend seeking support from a therapist if needed. Plan Of Treatment Next Appt Details Provider Name:Chitra Caballero , 05/22/2025 11:00:00 AM, [address] [facility] [address] [facility] [address], [place], [address], Insurance Providers Payer Name Payer Address Payer Phone Subscriber Number Group Number Insured Name Patient Relationship to Insured Coverage Start Date Coverage End Date Medicare- [place] Medicare [address] [place] [address] [id number] MAX VARGAS Self - patient is the insured [employer] Supplemen t [address] [facility] [place] [address] [phone] [id number] MAX VARGAS Self - patient is the insured Medical [...]
[2025-04-03 10:34] VITALS: BP 156/71; PULSE 78; RESP 16; TEMP 36.3; O2SAT 100; BMI 31.2
[2025-04-03] MEDS: LACTATED RINGERS 1,000 ML 150 ML IV CONT (10:51)
--- NOTE | 2025-04-03 11:12 | P.PNAN_ITS ---
Anes - Initial Pre Proc Eval Procedure: Operation Date: 04/03/25 11:30 Proposed Procedures p Screening Colonoscopy - Alcides Marquez MD Date/Time: 04/03/25 11:12 Surgeon: Alcides Marquez MD Pre Op Diagnosis: malignant neoplasm of colon Patient Data Age: 69 Gender: F Height: 1.55 m Weight: 75 kg Last Vital Signs Temp 97.3 F L 04/03/25 10:34 Pulse 78 04/03/25 10:34 Resp 16 04/03/25 10:34 BP 156/71 H 04/03/25 10:34 Pulse Ox 100 04/03/25 10:34 O2 Del Method Room Air 04/03/25 10:34 Allergies Allergy/AdvReac Type Severity Reaction Status Date / Time No Known Allergies Allergy Unknown Verified 04/03/25 10:34 Home Medications ?Medication ?Instructions ?Recorded ?Confirmed ?Type atorvastatin 20 mg tablet 20 mg PO QPM 03/26/25 03/26/25 History duloxetine 60 mg capsule,delayed 60 mg PO DAILY 03/26/25 03/26/25 History release hydrochlorothiazide 12.5 mg capsule 12.5 mg PO DAILY 03/26/25 03/26/25 History levothyroxine 100 mcg tablet 100 mcg PO DAILY 03/26/25 03/26/25 History olmesartan 20 mg tablet 20 mg PO DAILY 03/26/25 03/26/25 History sertraline 50 mg tablet 50 mg PO DAILY 03/26/25 03/26/25 History Patient hx anesthesia problems: none Family hx anesthesia problems: none Results Review: All pre-operative results and documents have been reviewed as part of the pre- operative evaluation. [facility] Past Medical History Medical History Hypercholesteremia Hypertension Social History Social History Smoking status: Never smoker Substance use: never Living arrangements: with family Spiritual care concerns: No Anes - Eval Final PreProcedure Day of Procedure 04/03/25 11:12 Patient weight: obese Lungs: normal air movement Airway: Mallampati scale class II Neurological: alert and oriented Last oral intake: >/= 8 hours ASA classification: II Emergent: no Anesthetic plan: proceed Anesthesia type and monitoring: general GIVS and standard monitoring Results Review: All pre-operative results and documents have been reviewed as part of the pre- operative evaluation. HTN, hypelipidemia, hypothyroidism. Informed Consent: The patient's anesthetic plan and its attendant risks and benefits were discussed with the patient/family/POA. Questions were solicited and answers provided to the satisfaction of the patient/family/POA.
--- NOTE | 2025-04-03 11:42 | PM.IMHP ---
H&P: HPI History of Present Illness Date/Time: 04/03/25 11:42 Chief Complaint: History of colon polyps Narrative: The patient has a history of colonic polyps, the last colonoscopy was 5 years ago. Review of Systems Review of Systems: All systems reviewed & are unremarkable except as noted in HPI and below PMFSH Past Medical History Medical History Hypercholesteremia Hypertension Social History Social History Smoking status: Never smoker Substance use: never Living arrangements: with family Spiritual care concerns: No Meds Home Medications and Allergies Home Medications ?Medication ?Instructions ?Recorded ?Confirmed ?Type atorvastatin 20 mg tablet 20 mg PO QPM 03/26/25 03/26/25 History duloxetine 60 mg capsule,delayed 60 mg PO DAILY 03/26/25 03/26/25 History release hydrochlorothiazide 12.5 mg capsule 12.5 mg PO DAILY 03/26/25 03/26/25 History levothyroxine 100 mcg tablet 100 mcg PO DAILY 03/26/25 03/26/25 History olmesartan 20 mg tablet 20 mg PO DAILY 03/26/25 03/26/25 History sertraline 50 mg tablet 50 mg PO DAILY 03/26/25 03/26/25 History Allergies Allergy/AdvReac Type Severity Reaction Status Date / Time No Known Allergies Allergy Unknown Verified 04/03/25 10:34 Vital Signs Vital Signs - 24 hr 04/03/25 10:34 Temperature 97.3 F L Pulse Rate 78 Respiratory Rate 16 Blood Pressure 156/71 H Pulse Oximetry 100 Oxygen Delivery Room Air Exam Const: General: cooperative and healthy appearing Resp: Effort & Inspection: normal respiratory effort and able to speak in complete sentences Auscultation: clear to auscultation bilaterally Cardio: Rate: regular rate Rhythm: regular rhythm GI: Inspection: normal to inspection GI Palp: No No hepatosplenomegaly present Auscultation: normal bowel sounds Rectal Exam: deferred Skin: General skin exam: normal color Psych: Appearance: grossly normal Mental Status: mental status grossly normal Assessment and Plan Assessment and plan (1) History of colonic polyps: Code(s): Z86.0100 - Personal history of colon polyps, unspecified Status: Acute Assessment and Plan: The patient is deemed a good candidate for the procedure. Consent signed. Will proceed.
--- NOTE | 2025-04-03 11:58 | SUR.OPER ---
Wire stiffner used by
--- NOTE | 2025-04-03 12:05 | S_PTH ---
PATIENT: Lena Hood LOC: [facility] U#:[id number] AGE/SX: 69/F ROOM: RE04/03/[address]: Alcides Marquez MD : 1955 BED: DIS: 04/03/2025 SPEC #: [id number] RECD: 04/03/25 12:57 STATUS: SHEFALI REQ #: [id number] CHINO: 04/03/25 12:[address]: Alcieds Marquez DEPT: [facility] Surgical RECD BY: Carla Ny ENTERED: 04/03/25 12:58 SP TYPE: Surgical OTHR DR: Kalia ChávezMD Tissues: A - Colon Polypectomy B - Colon Polypectomy Procedures: Hematoxylin and Eosin Stain Gross and Microscopic Level 4
[2025-04-03 12:07] VITALS: BP 141/80; PULSE 80; RESP 21; O2SAT 100
[2025-04-03 12:17] VITALS: BP 135/78; PULSE 67; RESP 18; O2SAT 100
[2025-04-03 12:27] VITALS: BP 146/75; PULSE 66; RESP 18; O2SAT 100
== END 2025-04-03 12:39 | disposition home or self-care (01) ==
PROVIDERS: PCP Internal Medicine; Referring Provider Internal Medicine; Visit Provider Internal Medicine Gastroenterology
PROC: 0DJD8ZZ Inspection of Lower Intestinal Tract, Via Natural or Artificial Opening Endoscopic (ICD-10-PCS; CPT 45378; principal; 2025-04-03 11:30)
DX: Z12.11 Encounter for screening for malignant neoplasm of colon (principal); D12.3 Benign neoplasm of transverse colon; D12.5 Benign neoplasm of sigmoid colon; K57.30 Diverticulosis of large intestine without perforation or abscess without bleeding; E66.9 Obesity, unspecified; Z68.31 Body mass index [BMI] 31.0-31.9, adult
CPT/HCPCS: 45385; 88305; J2003; J2704; J7120

== ENCOUNTER 2025-10-21 10:45 | Emergency (ER) | payer MEDICARE, SELFPAY ==
--- OUTSIDE RECORDS SUMMARY | 2025-05-22 05:00 | XMS_ITS ---
Author Organization [facility] [employer] [facility] Address [facility] [facility] [address] [place] [address] Care Team Providers Care Chopper Gun Operator Name Role Phone Kalia Chávez MD Primary Care Provider Unavail able Stephen Maria Unavailable [phone] Chitra Caballero Unavailable [phone] REASON FOR VISIT Scheduled with wrong provider Social History Sex Assigned At : Social History Observation Description Sex Assigned At Female Encounters Encounter Location Date Provider Diagnosis [facility] [employer] [place] [address] [place] [address] 05/22/2025 Chitra Caballero Plan Of Treatment Next Appt Details Provider Name:Stephen hinojosa, 12/10/2025 11:45:00 AM, [address], [place], [address], Progress Notes * MAX VARGASDOB:[birth year] (70 yo F)Acc No.[id number]:05/22/2025 Patient: MAX SOARES Provider: BECK AGUAYO :1955 A ge:69 Y S ex:Female Date:05/22/2025 [address] [id number] Pcp:Kalia Chávez MD Subjective: * Chief Complaints: * S cheduled with wrong provider Billing Information: * Procedure Codes: * Electronic signature of BECK Lam on 10/21/2025 at 12:52 PM [employer] Sign off status: Pending * Provider: Teodoro CABALLERO [facility] Date: 0 05/22/2025 Generated for Héctor ricardo/Milka/Angeles on: 1 12/22/2024 12:52 PM [employer]
--- NOTE | ~2025-10-21 | XR_ITS ---
EXAMINATION: [id number], 10/21/2025 11:25 WIRELESS NETWORK ENGINEER HISTORY: right posterior lower rib pain, injury COMPARISON: No comparisons available. Findings: No acute fracture or malalignment. No significant degenerative changes. Soft tissues unremarkable. Impression: No acute fracture or malalignment. Reviewed, dictated and finalized at location P. LESS NETWORK ENGINEER Impression: No acute fracture or malalignment.
[2025-10-21 11:13] VITALS: BP 126/69; PULSE 92; RESP 18; TEMP 36.6; O2SAT 96
--- NOTE | 2025-10-21 12:32 | ED.BACK ---
HPI - Back Pain/Injury General Chief Complaint: Back Pain/Injury Stated Complaint: Sharp pain on right side of body. Time Seen by Provider: 10/21/25 12:10 Source: patient and RN notes reviewed Mode of arrival: ambulatory Limitations: no limitations History of Present Illness HPI Narrative: 70-year-old female presents Express Care complaining of right lower rib pain/back pain for 10 days. Patient denies any falls but she accidentally the stumbled backwards striking her right lower rib/back on on a vanity. Patient reports some bruising to the right lower ribs since. Patient continues to have pain, it is worse with certain movements, coughing, or sneezing. Patient denies hitting her head, loss of consciousness, or any other injuries. Patient denies any cough, fevers, congestion, chest pain, breathing problems, or any other symptoms. Patient has not take any blood thinners. Patient has a history of high blood pressure. Patient has a taking anything for pain. Related Data Home Medications ?Medication ?Instructions ?Recorded ?Confirmed ?Last Taken ?Type atorvastatin 20 mg tablet 20 mg PO QPM 03/26/25 03/26/25 Unknown History duloxetine 60 mg capsule,delayed 60 mg PO DAILY 03/26/25 03/26/25 Unknown History release hydrochlorothiazide 12.5 mg capsule 12.5 mg PO DAILY 03/26/25 03/26/25 Unknown History levothyroxine 100 mcg tablet 100 mcg PO DAILY 03/26/25 03/26/25 Unknown History olmesartan 20 mg tablet 20 mg PO DAILY 03/26/25 03/26/25 Unknown History sertraline 50 mg tablet 50 mg PO DAILY 03/26/25 03/26/25 Unknown History Allergies Allergy/AdvReac Type Severity Reaction Status Date / Time No Known Allergies Allergy Unknown Verified 10/21/25 11:11 Review of Systems Review of Systems: CONSTITUTIONAL: Denies fever, chills, or sweats. EYES: Denies visual changes, redness, or discharge. ENT: Denies rhinorrhea, congestion, sore throat, or otalgia. CARDIOVASCULAR: Denies chest pain, palpitations, or edema. RESPIRATORY: Denies cough or dyspnea. GASTROINTESTINAL: Denies abdominal pain, nausea, vomiting, or diarrhea. GENITOURINARY: Denies dysuria or hematuria. SKIN: Denies rash or itching. MUSCULOSKELETAL: Denies back pain, neck pain, joint pain, or myalgia. Positive for rib pain. NEUROLOGIC: Denies headache, loss of consciousness, numbness, or weakness. PSYCHIATRIC: Denies anxiety or depression. All other systems reviewed are negative, except as documented in HPI. [facility] Past Medical History Medical History Hypercholesteremia Hypertension Social History Social History Smoking status: Never smoker Substance use: never Living arrangements: with family Spiritual care concerns: No Comments At the time of my signature, I reviewed and agree with the nursing past medical, surgical, social, and family history. There is no relevant family history pertinent to the patient complaint. Exam Narrative: GENERAL: This is a well-nourished, well-developed adult, in no apparent distress. They are non ill-appearing, nontoxic appearing. HEAD: normocephalic, atraumatic. EYES: Sclera clear/white. Conjunctiva normal. Vision is grossly intact. Extraocular movements intact EARS: External ears normal. Hearing grossly intact. NOSE: External nose normal THROAT: Mucous membranes moist, NECK: Neck supple, CARDIOVASCULAR: Regular rate and rhythm without murmurs, gallops, or rubs. CHEST WALL: Old bruising present to the right lower posterior your ribs. It Is tender to palpate. No paradoxical movements, no flail chest segment. RESPIRATORY: Clear to auscultation. Breath sounds equal bilaterally. No wheezes, rales, or rhonchi. GASTROINTESTINAL: Abdomen soft, non-tender, nondistended. Negative Garibay Solano sign or sheron sign. SKIN: warm, Dry, intact with no suspicious lesions or rash, good texture and turgor. NEURO: awake, alert, and oriented to person, place and time. There were no obvious focal neurologic abnormalities. EXTREMITIES: No joint tenderness, effusion, or edema noted. BACK: Nontender without deformity. No CVA tenderness. No cervical, thoracic, or lumbar point tenderness ,no crepitus or step-offs. Course Course Level of Care: Express Care Visit Vital Signs Vital signs: Vital Signs Temperature 97.9 F 10/21/25 11:13 Pulse Rate 92 10/21/25 11:13 Respiratory Rate 18 10/21/25 11:13 Blood Pressure 126/69 10/21/25 11:13 Pulse Oximetry 96 10/21/25 11:13 Oxygen Delivery Room Air 10/21/25 11:13 Temperature 97.9 F 10/21/25 11:13 Pulse Rate 92 10/21/25 11:13 Respiratory Rate 18 10/21/25 11:13 Blood Pressure 126/69 10/21/25 11:13 Pulse Oximetry 96 10/21/25 11:13 Oxygen Delivery Room Air 10/21/25 11:13 MDM MDM Narrative Medical decision making narrative: X-ray right ribs negative for fractures or any acute cardiopulmonary findings. Likely patient has a rib contusion, is in the old stages of healing with bruising. Present is mild, no flank bruising. No evidence of pneumonia or infection. Lung sounds clear to auscultation. Patient nontoxic appearing, no apparent distress. Discussed supportive care, will send patient home with incentive spirometer, patient was educated on how to use a by nursing staff. Will send patient home on a short course of Sunspot as needed for severe pains. Strict ER precautions discussed with patient specially she develops signs of pneumonia. Discussed physical exam findings. Advised supportive measures and signs/symptoms to go to the ER. Pt is appropriate for outpt treatment and f/u. Differential Diagnosis Differential Diagnosis: Rib contusion, rib fracture, back pain, muscle strain Imaging Data Radiologist's impression: ITS Impressions Ribs w/Chest X-Ray 10/21/25 11:57 Impression: No acute fracture or malalignment. Critical Care Time Critical Care Time Critical Care Time: No Discharge Plan Discharge Clinical Impression: Contusion of ribs Qualifiers: Encounter type: initial encounter Qualified Code(s): S29.8XXA - Other specified injuries of thorax, initial encounter Patient Disposition: Home Condition: Stable Instructions: Antibiotic Form, Rib Contusion (ED) Additional Instructions: The x-ray of your right ribs negative for any fractures or acute findings. It is likely of a rib contusion. They will resolve on her own however they may take up to 4 weeks or longer to heal. Use the incentive spirometer while awake every 2 hours on the are taking 10 deep breaths to help prevent pneumonia. Take Tylenol or ibuprofen as needed for pain. You may take ibuprofen 600 mg to 800 mg every 6-8 hours. Do not exceed more than 800 mg of ibuprofen per dose. Do not exceed more than 3200 mg ibuprofen in a day. You may take up to 1000 mg Tylenol every 6-8 hours. Do not exceed 1000 mg per dose, do exceed more than 4000 mg of Tylenol in a day. Take the Sunspot is as needed for severe pain, do not drive or operate machinery while taking this medication as it may make you drowsy. Sunspot does already contains Tylenol in it to be mindful of the amount of Tylenol your taking. You may also apply ice or heat to the affected area, or use lidocaine patches to the affected area, you may leave lidocaine patches on up to 12 hours and then remove them for 12 hours. Follow-up with your PCP in 3-5 days. If you developed worsening chest pain, difficulty breathing, fevers, weakness, or any serious concerns please go to the ER immediately. Patient Language: Korean Prescriptions: New hydrocodone-acetaminophen 5-325 mg tablet 1 tablet PO Q8H PRN (Reason: pain) Qty: 20 0RF No Action atorvastatin 20 mg tablet 20 mg PO QPM duloxetine 60 mg capsule,delayed release(DR/EC) 60 mg PO DAILY hydrochlorothiazide 12.5 mg capsule 12.5 mg PO DAILY levothyroxine 100 mcg tablet 100 mcg PO DAILY olmesartan 20 mg tablet 20 mg PO DAILY sertraline 50 mg tablet 50 mg PO DAILY Follow-up/Referrals: Saira,Kalia Sanchez MD [Primary Care Provider, Unknown] Time of Disposition: 12:27
--- OUTSIDE RECORDS SUMMARY | 2025-10-21 12:52 | XMS_ITS | Patient Health Record ---
Author Organization [facility] [employer] [facility] Address [address] [place] [address] Care Team Providers Care It Business Systems Analyst Name Role Phone Kalia Chávez MD Primary Care Provider Unavail able Stephen Maria Unavailable [phone] Chitra Caballero Unavailable [phone] Allergies No Known Allergies Reason For Referral No Information Medications Medication SIG (Take, Route, Frequency, Duration) Notes Start Date End Date Status Levothyroxine Sodium 100 MCG Tablet Oral 10/24/2023 Active Sertraline HCl 50 MG Tablet 1 tablet Ora l Once a day; Duration: 90 days Active hydroCHLOROthiazide 12.5 MG Capsule Oral 10/24/2023 Active DULoxetine HCl 60 MG Capsule Delayed Release Particles 1 capsule Oral Once a day; Duration: 90 days Active Sertraline HCl 50 MG Tablet TAKE 1 TABLE T BY MOUTH EVERY DAY; Duration: 90 Active Olmesartan Medoxomil 20 MG Tablet Oral 10/24/2023 Active Atorvastatin Calcium 20 MG Tablet Oral 10/24/2023 Active Immunizations Vaccine Route Administration Date Status Comme nts Influenza, high dose seasonal Unknown 08/04/2013 Admini stered Influenza, high dose seasonal Unknown 09/16/2015 Admini stered Influenza, high dose seasonal Unknown 07/27/2016 Admini stered Tdap Unknown 04/09/2017 Administered Influenza, unspecified formulation Unknown 09/02/2018 A dministered Influenza virus vaccine, quadrivalent (IIV4), split virus, 0.25 mL dosage Unknown 08/20/2018 Administered Influenza virus vaccine, quadrivalent (IIV4), split virus, 0.25 mL dosage Unknown 08/21/2019 Administered Influenza virus vaccine, quadrivalent (IIV4), split virus, 0.25 mL dosage Unknown 08/14/2020 Administered Pfizer Biontech Covid-19 Vac cine 2nd dose Unknown 01/20/2021 Administered Pfizer Biontech Covid-19 Vac cine 2nd dose Unknown 02/13/2021 Administered Social History Tobacco Use: Social History Observation Description Date Details (start date - stop date) Never Smoker NA - NA Sex Assigned At : Social History Observation Description Sex Assigned At Female Social History Miscellaneous: Social Info Question Answer Notes Advance Care Planning Are you your own decision-maker Yes Do you have Power of Railway Head Tender for Health or Medi edy? No Tobacco Use: Social Info Question Answer Notes Tobacco Control (Standard) Tobacco use: Nonsmoker Additional Details Category Social Info Options Details Migrated Social History Migrated Social History Alcohol Intake: None 08/22/2018,Tobacco Years: Never smoker 08/22/2018 Problems Problem Type SNOMED Code ICD Code Onset Dates Problem Status W/U Status Risk Notes Problem Recurrent major depression (87471785) Major depressive disorder, recurrent, in remission, unspecified (F33.40) Active confirmed Problem Generalized anxiety disorder (73675644) Generalized anxiety disorder (F41.1) Active confirmed Vital Signs Heart Rate 88 /min 05/26/2025 Height-cm 152.40 cm 05/26/2025 Blood pressure diastolic 70 mm Hg 05/26/2025 Weight-kg 77.11 kg 05/26/2025 Height 60.00 in 05/26/2025 Blood pressure systolic 121 mm Hg 05/26/2025 Weight 170 lbs 05/26/2025 BMI 33.2 kg/m2 05/26/2025 Encounters Encounter Location Date Provider Diagnosis [facility] [address] [address] 11/27/2024 Stephen Maria Major depressive disorder, recurrent, in remission, unspecified F33.40 and Generalized anxiety disorder F41.1 [facility] [address] [facility] [address] [place] [address] 05/26/2025 Stephen Maria Major depressive disorder, recurrent, in remission, unspecified F33.40 and Generalized anxiety disorder F41.1 [facility] [address] [address] 11/27/2024 Stephen Maria [facility] [employer] [facility] [address] [place] [address] 03/11/2025 Stephen Maria [facility] [employer] [facility] [address] [place] [address] 05/27/2025 Stephen Maria Assessments Encounter Date Diagnosis (ICD Code) Assessment Notes Treatment Notes Treatment Clinical Notes Section Notes 11/27/2024 Major depressive disorder, recurrent, in remission, unspecified (ICD-10 - F33.40) 05/26/2025 Major depressive disorder, recurrent, in remission, unspecified (ICD-10 - F33.40) 05/26/2025 Generalized anxiety disorder (ICD-10 - F41.1) 11/27/2024 Generalized anxiety disorder (ICD-10 - F41.1) 11/27/2024 Other 1. Anxiety and depressive symptoms: [...] - Recommend seeking support from a social services designee or therapist if needed. 3. Family dynamics [...] seeking support from a therapist if needed. 05/26/2025 Other Max Vargas, a woman caring for her 92-year-old mother who recently suffered a compression fracture, presents with depressed mood and caregiver stress. Depressive symptoms Assessment: Patient reports feeling down and unable to articulate her emotional state precisely. Symptoms appear to be exacerbated by the stress of caring for her elderly mother, who recently suffered a compression fracture and is experiencing severe pain. Patient's ability to engage in social activities is limited, though she continues to volunteer weekly. Recent life changes, including purchasing a new house, are complicated by her caregiving responsibilities. Patient notes rapid onset of symptoms when medication doses are missed, suggesting current regimen is providing some benefit. 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 The patient expresses distress over her mother's condition and the impact on her own life, including feeling unable to leave her mother to move into a recently purchased house. Despite these challenges, the patient maintains some social engagement through weekly volunteering. Plan: - Encourage continuation of current social activities, such as volunteering the note is transcribed using speech recognition software. It is a reflection of a visit with the patient. It might have some inaccuracy, including medication names and transcribing errors, though efforts have been made to correct them. Plan Of Treatment Next Appt Details Provider Name:Stephen hinojosa, 12/10/2025 11:45:00 AM, [address] [facility] [address] [address], [facility] [address], [place], [address], Insurance Providers Payer Name Payer Address Payer Phone Subscriber Number Group Number Insured Name Patient Relationship to Insured Coverage Start Date Coverage End Date Medicare- [place] Medicare [address] [place] [phone] [id number] MAX VARGAS Self - patient is the insured [facility] Medicare Supplemen t [address] [facility] [address] [phone] [id number] MAX VARGAS Self - patient is the [...]
--- OUTSIDE RECORDS SUMMARY | 2025-10-21 12:52 | XMS_ITS | Encounter Summary ---
Author Organization [facility] Address [address] [place] [address] Care Team Providers Care Reject Opener And Filler Name Role Phone Kalia Chávez MD Primary Care Provider Encounter Details Date Type Department Care Team (Late st Contact Info) Description 07/02/2025 Lab Requisition [facility] - DermPath Lab [address] [facility], [place] [id number] Agata Thomas DO [address] [facility] [address] [place] [address] Social History Tobacco Use Types Packs/Day Years Used Date Smoking Tobacco: Never Assessed Comments Unknown Sex and Gender Information Value Date Recorded Sex Assigned at Not on file Legal Sex Female 10:21 AM CDT Gender Identity Not on file Sexual Orientation Not on file documented as of this encounter Plan of Treatment Not on file documented as of this encounter Procedures Procedure Name Priority Date/Time Associated Diagnosis Comments DERMATOPATHOLOGY Routine 07/02/2025 2:25 PM CDT documented in this encounter Results * DERMATOPATHOLOGY (07/02/2025 2:25 PM CDT) Case Report Dermatopathology Report Case: [id number] Authorizing Provider: Agata Thomas DO Collected: 07/02/2025 02:25 PM Ordering Location: [facility] - Received: 07/03/2025 08:21 AM DermPath Lab Pathologist: Martina Hussein MD Specimen: Skin, left posterior lower extremity 12:29 PM CDT DERMATOPATHOLOGY LABORATORY Final Diagnosis Specimen A. SKIN, left posterior lower extremity: BENIGN VERRUCOUS KERATOSIS (L82.1) 12:29 PM CDT DERMATOPATHOLOGY LABORATORY at 1229 CDT Clinical History R/O SCC 12:29 PM CDT DERMATOPATHOLOGY LABORATORY Gross Description Specimen A: Received is one formalin filled container labeled with the patient's name and designated left posterior lower extremity. The specimen consists of a shave biopsy measuring 7x7x2 mm. Jar 0. 12:29 PM CDT DERMATOPATHOLOGY LABORATORY Microscopic Description Specimen A. SKIN, left posterior lower extremity: Sections show hyperkeratosis, papillomatosis, hypergranulosis, and acanthosis. These histological findings can be seen in a verruca vulgaris or a seborrheic keratosis. 12:29 PM CDT DERMATOPATHOLOGY LABORATORY Disclaimer An external and internal positive and negative controls are appropriate for the histochemical, immunohistochemical and immunofluorescence stain(s) in this case (if any), except where stated explicitly. The performance characteristics of the stain(s) cited in this report were developed and its performance characteristic determined by the Dermatopathology Laboratory at [facility], directed by Dr. Suhas Hussein. These tests need not be, and therefore are not, approved by the [place] Food and Drug Administration. The tests are used for clinical purposes. Billing Codes Specimen Charges Stain Charges 27226 1 12:29 PM CDT DERMATOPATHOLOGY LABORATORY Embedded Images 12:29 PM CDT DERMATOPATHOLOGY LABORATORY Pathology/Cytolo gy TISSUE SPECIMEN FROM SKIN / Unknown 07/02/2025 2:25 PM CDT 07/03/2025 8:21 AM CDT us Agata Thomas DO LAB - PATHOLOGY/CYTOLOGY ORDERABLES Final Result DERMATOPATHOLOGY LABORATORY [facility] - Department of Dermatology [address] [place] [address], [facility] [phone] documented in this encounter Visit Diagnoses Not on filedocumented in this encounter Care Teams Reject Opener And Filler Relationship Specialty Start Date End Date Kalia Chávez MD [address] [place] [phone] PCP - General Internal Medicine 04/09/17 documented as of this encounter
--- OUTSIDE RECORDS SUMMARY | 2025-10-21 12:53 | XMS_ITS | Clinical Summary ---
Author Organization [facility] Address [address] [place] [address] Care Team Providers Care Supervisor Conditioning Yard Name Role Phone Kalia Chávez MD Primary Care Provider Source Comments [facility],non-owned Affiliates and Associated Physician Practices is amultiple site organization consisting of ambulatory clinics and hospital sitesin [place], [place], [place] and [place]. This disclosure is being madepursuant to the Care Everywhere program and may not contain all information available regarding this patient. Last updated 18.[facility] PREST[facility]E Immunizations Immunization Administration Dates Next Due TDAP [...] SCREENING 1957 LIPID TESTING 1957 MAMMOGRAM 1957 MEDICARE AWV 12 MONTHS 1957 HEPATITIS C SCREENING 05/20/1975 PNEUMOCOCCAL VACCINE 50+ (1 of 1 - PCV) 2007 ZOSTER VACCINE (1 of 2) 2007 DEPRESSION SCREENING 11/05/2024 COVID-19 VACCINE ( - 2024-2 6 season) 2025 INFLUENZA VACCINE (#1) 2025 DTAP/TDAP/TD VACCINES (2 - T d [...] patient's age to complete this topic Insurance [facility] Address: [facility] [address] [place] [address] MEDICARE [facility] SELF PAY NO INSURANCE Member Subscriber Plan / Payer (Ef fective for All Dates) Name:Max Vargas Member ID:Not on file Relation to Subscriber:Not on file Name:MAX VARGAS Subscriber ID:Not on file (Home) Address: [address] [place] [phone] Payer ID:Not on file Group ID:Not on file Type:Self Pay Address: [place], [place] Care Teams Supervisor Conditioning Yard Relationship Specialty Start Date End Date Kalia Chávez MD [address] [place] [address] [address] [place] [phone] PCP - General Internal Medicine 04/09/17
--- OUTSIDE RECORDS SUMMARY | 2025-10-21 12:53 | XMS_ITS | Clinical Summary ---
Author Organization [facility] Address [address] [place] [address] Care Team Providers Care Senior Publications Specialist Name Role Phone Kalia Chávez MD Primary Care Provider Allergies No known active allergies Medications levothyroxine (SYNTHROID) 100 mcg tablet Take 100 mcg by mouth early childhood associate teacher before breakfast Active hydroCHLOROthia zide (MICROZIDE) 12.5 [...] (12/18/2022): Added automatically from request for surgery [id number] Diagnosis unknown 12/17/2022 Depression 02/21/2021 02/20/2023 Hypertension [...] cousin No Known Problems Sister BRCA 1 positive Neg Hx BRCA 2 positive Neg Hx Benign Breast Condition Neg Hx [...] on file Legal Sex Female 11:29 AM EQUIPMENT RECORDS SUPERVISOR Gender Identity Not on file Sexual Orientation Not on file Obstetrics History Para Term AB IAB SAB Ectopic Multiple Livin g Live Births 1 1 1 Date Outcome GA Total Labor Labor/2nd/3rd Weight Sex Type Anes PTL Renetta A1 A5 Name Clin Term Last Filed Vital Signs Vital Sign Reading Time Taken Comments Blood Pressure 141/81 12/20/2022 4:50 PM EQUIPMENT RECORDS SUPERVISOR Pulse 80 12/20/2022 5:00 PM EQUIPMENT RECORDS SUPERVISOR Temperature 37 C (98.6 F) 12/20/2022 2:30 PM EQUIPMENT RECORDS SUPERVISOR Respiratory Rate 16 12/20/2022 5:00 PM EQUIPMENT RECORDS SUPERVISOR Oxygen Saturation 97% 12/20/2022 5:00 PM EQUIPMENT RECORDS SUPERVISOR Inhaled Oxygen Concentration - - Weight 81.6 kg (180 lb) 12/16/2022 3:21 PM EQUIPMENT RECORDS SUPERVISOR Height 154.9 cm (5' 1) 12/16/2022 3:21 PM EQUIPMENT RECORDS SUPERVISOR Body Mass Index 34.01 12/16/2022 3:21 PM EQUIPMENT RECORDS SUPERVISOR Plan of Treatment Health Maintenance Due Date [...] Assessment 12/20/2023 12/20/2022 Covid-19 Vaccine (5 - 2024-2 6 season) 2025 09/25/2022, 10/18/2021, 02/13/2021, Additional history exists Influenza Vaccine (#1) 2025 2, 09/14/2022, 08/28/2021, Additional history exists DTaP/Tdap/Td Vaccine (2 - Td or Tdap) 04/09/2027 04/09/2017 Medical Devices Implanted Type Area Perinatology Physician Device Identifier Shelf Expiration Date Model / Serial / Lot [employer]hew[employer]O rtho Evos 2mm 14mm Provisional Pin Fixation Sterile [id number] - [id number] Implanted:Qty: 1 on 12/20/2022 by Мария West MD at [facility] Pin Left: Ankle [employer]/Or tho [id number] / / [employer]O rtho Evos [id number] 16.3x1.7mm 11 Hole Low Profile Variable Angle [id number] - [id number] Implanted:Qty: 1 on 12/20/2022 by Мария West MD at [facility] Plate Left: Ankle [employer]/Or tho [id number] / / [employer]Rich[employer]/O rtho 2.4mm 3.8mm 15mm Self Retaining Screwdriver Self Tap Flat Head [id number] - [id number] Implanted:Qty: 2 on 12/20/2022 by Мария West MD at [facility] Screw Left: Ankle [employer]/Or tho [id number] / / [employer] rtho Evos Mini 2.7mm 4.5mm 10mm Self Tap Cortex T8 Screw Bone [id number] - [id number] Implanted:Qty: 1 on 12/20/2022 by Мария West MD at [facility] Screw Left: Ankle [employer]Or tho [id number] / / [employer]/O rtho 2.7mm 4.3mm 16mm Self Tap Lock T8 2mm Screw Bone Evos [id number] - [id number] Implanted:Qty: 1 on 12/20/2022 by Мария West MD at [facility] Screw Left: Ankle [employer]/Or tho [id number] / / [employer]/O rtho 2.7mm 4.3mm 14mm Self Tap Lock Small Bone Long Bone T8 2mm Screw [id number] - [id number] Implanted:Qty: 2 on 12/20/2022 by Мария West MD at [facility] Screw Left: Ankle [employer]/Or tho [id number] / / [employer]/O rtho Evos Mini 2.7mm 4.5mm 13mm Self Tap Cortex T8 Screw Bone [id number] - [id number] Implanted:Qty: 1 on 12/20/2022 by Мария West MD at [facility] Screw Left: Ankle [employer]/Or tho [id number] / / [employer]/O rtho Evos 3.5mm 70mm Self Tap Cortex Screw Bone Sterile [id number] - [id number] Implanted:Qty: 1 on 12/20/2022 by Мария West MD at [facility] Screw Left: Ankle [employer]/Or tho [id number] / / [employer]/O rtho Evos 3.5mm 80mm Self Tap Cortex Screw Bone Sterile [id number] - [id number] Implanted:Qty: 1 on 12/20/2022 by Мария West MD at [facility] Screw Left: Ankle [employer]/Or tho [id number] / / [employer]/Rich[employer]/O rtho Evos 3.5mm 48mm Self Tap Cortex Screw Bone Sterile [id number] - [id number] Implanted:Qty: 2 on 12/20/2022 by Мария West MD at [facility] Screw Left: Ankle [employer]/Or tho [id number] / / [employer]hew/Rich[employer]/O rtho Evos 3.5mm 12mm Self Tap Cortex Screw Bone Sterile [id number] - [id number] Implanted:Qty: 3 on 12/20/2022 by Мария West MD at [facility] Screw Left: Ankle [employer]Rich[employer]/Or tho [id number] / / Explanted Type Area Perinatology Physician Device Identifier Shelf Expiration Date Model / Serial / Lot [employer]hew/Richco/ Ortho Evos Mini 2.4mm 3.8mm 13mm Self Tap Cortex T7 Screw Bone Sterile [id number] - [id number] Explanted:Qty: 1 on 12/20/2022 by Мария West MD at [facility] Screw Left: Ankle [employer]/Or tho [id number] / / Procedures Procedure Name Priority Date/Time [...] Recently Relevant to Health Maintenance Insurance MEDICARE [facility] MEDICARE [facility] MEDICARE [facility] Care Teams Senior Publications Specialist Relationship Specialty Start Date End Date Kalia Chávez MD PCP - General 01/09/17
--- OUTSIDE RECORDS SUMMARY | 2025-10-21 12:56 | XMS_ITS | Clinical Summary ---
Author Organization [facility] Address [address] [place] [address] Care Team Providers Care Ocean Clam Boat Captain Name Role Phone Unavailable Primary Care Provider Unavailabl e Social History Tobacco Use Types Packs/Day Years Used Date Smoking Tobacco: Never Assessed Comments Unknown Sex and Gender Information Value Date Recorded Sex Assigned at Not on file Legal Sex Female 9:35 AM EDT Gender Identity Not on file Sexual Orientation Not on file Plan of Treatment Not on file Medical Devices Not on file
== END 2025-10-21 12:30 | disposition home or self-care (01) ==
PROVIDERS: PCP Internal Medicine
DX: S20.221A Contusion of right back wall of thorax, initial encounter (principal); W22.8XXA Striking against or struck by other objects, initial encounter; I10 Essential (primary) hypertension; E78.00 Pure hypercholesterolemia, unspecified
CPT/HCPCS: 71101; 99213; G0463